=== PATIENT | female | born 1950 | race Caucasian/White ===

== ENCOUNTER → 2020-10-19 11:39 | Outpatient (CLI) | payer MEDICARE, OTHER, SELFPAY ==
[2020-10-19 13:11] LABS: COVID19 -Nasal RAPID Negative (Negative)
== END ==
PROVIDERS: Visit Provider Physician Assistant
DX: Z01.812 Encounter for preprocedural laboratory examination (principal); Z20.822 Contact with and (suspected) exposure to COVID-19
CPT/HCPCS: 87635; C9803

== ENCOUNTER 2020-10-22 10:05 | Observation (INO) | payer MEDICARE, OTHER, SELFPAY ==
[2020-10-15 09:53] VITALS: BMI 24.0
[2020-10-21] VITALS (15 sets, daily range): BP systolic 104–150; BP diastolic 60–94; PULSE 78–100; RESP 10–16; TEMP 36–36.6; O2SAT 95–100; BMI 23.7
--- NOTE | 2020-10-21 | DI.RAD.S_ITS ---
PROCEDURE: XR LUMBAR SPINE 2-3V INDICATIONS: L5-S1 TLIF TECHNIQUE: 2 intraoperative fluoroscopic views of the lumbar spine were acquired. COMPARISON: None. FINDINGS: Intraoperative fluoroscopic images shows transpedicular fusion at L5-S1 level with intervertebral spacer placement. IMPRESSION: Fluoro guidance was provided intraoperatively for posterior fusion at L5-S1 level. Dictated by: Enmanuel Valles M.D. on 10/21/2020 at 16:54 Approved by: Enmanuel Valles M.D. on 10/21/2020 at 16:55
[2020-10-21] MEDS: LACTATED RINGERS 1,000 ML 42 ML IV ×2 (11:20→13:24)
--- NOTE | 2020-10-21 12:08 | PM.PREOP ---
Pre-operative Note COVID-19 COVID-19 status: Negative Result date/Date tested (Pos, Neg/Pending): 10/19/20 Interval Note History & Physical reviewed/Exam performed by Physician: Yes Changes to H&P: No
[2020-10-21] MEDS: CLINDAMYCIN 600 MG/50 ML PIGGYBACK 50 MG IV ×2 (12:15→20:11)
--- NOTE | 2020-10-21 13:00 | SUR.OPER ---
Prone on spine table, head in foam head support, padded chest and pelvic supports, gel pad at knees, lower legs supported by pillows; nipples, genitalia and toes free of pressure, arms secured on foam padded arm boards at <90 degrees abduction. Tape over blanket at thigh secured to table.
[2020-10-21] MEDS: BUPIVACAINE 0.25% W/ EPI (PF) 10 ML VIAL 20 ML INJ (13:06)
[2020-10-21] MEDS: BUPIVACAINE LIPOSOME 266 MG/20 ML VIAL INJ (13:06)
--- NOTE | 2020-10-21 14:46 | PM.OP.1 ---
Operative Date/Time/Diagnoses Date of procedure: 10/21/20 Time of procedure: 12:46 Pre-op diagnosis: 1. L5-S1 spondylolisthesis 2. L5-S1 spinal stenosis with radiculopathy Post-op diagnosis: same Procedure & Clinicians Procedure: 1. L5-S1 Postero-lateral and posterior interbody fusion 2. L5-S1 interbody cage placement. 3. L5-S1 decompressive laminectomy with bilateral facetecomies 4. L5-S1 Posterior non-segmental instrumentation 5. Hyndman of bone marrow from iliac crest 6. Utilization of microsurgical technique and operating microscope Same procedure as scheduled: Yes Indications: Patient has been having chronic back pain and worsening lumbar radiculopathy. Patient failed multiple conservative management with worsening pain weakness and numbness in her lower extremity. Patient has been having difficulty performing activity of daily living. After discussing risks benefits of treatment options, patient elected proceed with surgery. Surgeon: Ray Davila Director Recreation Center: Cassandra Parnell'Brien Click Yes if Unassisted: No Anesthesia Type: General Operative Notes Closure Type: primary Specimen(s): none sent Prosthetic devices, grafts, tissues, transplants, or devices: Globus revolve screws, Rise cage Estimated Blood Loss (mL): 75 Blood products transfused: none Procedure in detail: Patient was seen in the preoperative area. Risks and benefits of the surgery was discussed with the patient. Informed consent was obtained from the patient and placed in the chart. Surgical site was marked. Patient was taken to the operative room. General anesthesia was administered. Prophylactic antibiotic was given to the patient less than 30 min before the incision was made. Patient was placed into a prone position on the [place] table. Patient's back was then prepped and draped in the sterile fashion. Time-out was performed at this time. Using AP and lateral C-arm imaging the interval between L5-S1 was identified and marked on patient's back. A 2 inch incision 2 in from midline was made on the left side first. The fascia was incised in line with skin incision. Globus MARS retractors was placed inside the incision and docked onto the L5 lamina. Using microsurgical technique and operating microscope, a L5 laminectomy and L5-S1 facetectomy was performed using a Kerrison rongeur. Patient was found have severe lateral recess and neural foramen stenosis which was fully decompressed after the laminectomy facetectomy. More than 75% of the facets were removed during the process of decompression rendering L5-S1 level grossly unstable and required a fusion procedure at the same time. The disc space at L5-S1 was identified. And a total diskectomy was performed at L4-5 level. The endplates were decorticated using a rasp and shaver. The total diskectomy and decortication was performed at L5-S1 level in order to to accomplish a L5-S1 fusion. The local bone from the laminectomy and facetectomy was saved for local bone grafting. After the total diskectomy and decortication was completed, Trifecta bone graft material was combined with local bone that was harvested earlier. At this time, a separate skin is incision was made over the iliac crest. A Jamshidi needle was inserted into the iliac crest through a separate skin incision. 5 cc of bone marrow aspiration was obtained through the separate skin incision using a Jamshidi needle from the iliac crest. The bone marrow aspiration was combined with local bone and the Trifecta bone grafting material. The bone grafting material was placed into the L5-S1 interbody space along with a expandable cage. The cage was expanded to its maximum height using the torque limiting screwdriver. At this time a mirror image incision was made on the right side. The fascia was incised in line with the skin incision. Globus MARS retractor was inserted and docked onto the L5-S1 posterolateral gutter. Using the power drill, posterior-lateral decortication was performed at L5-S1 level until bleeding cortical bone was identified. The remaining bone grafting material was placed into the L5-S1 posterior lateral gutter he order to accomplish posterolateral fusion at the L5-S1 level. Using the double C-arm technique, pedicle screws were placed into the L5-S1 pedicles bilaterally. This was done by placing the Jamshidi needle into the pedicles, then placing the guidewires over the Jamshidi needle, and finally placing the cannulated screws over the guidewires bilaterally. After the pedicle screws were placed, 2 titanium rods was locked into the heads of the pedicle screws using locking caps and torque limiting screwdriver. After all the hardware was placed, and confirmed with AP and lateral C-arm imaging, the wound was then irrigated with sterile normal saline and packed with Ray-Tamiko gauze for 3 min to accomplish hemostasis. After the gauze was removed the deep fascia was closed with #1 Vicryl suture. The subcutaneous layer was closed with 2-0 Vicryl. The skin was closed with skin richard. Patient tolerated the procedure well. There were no complications. EMG and SSEP was used to monitor patient's neurological status which was stable throughout entire procedure. Complications: none Post-operative Condition: stable Disposition: PACU Plan for aftercare: Admit to inpatient hospital
[2020-10-21] MEDS: fentaNYL 100 MCG/2 ML INJ IV (15:03)
[2020-10-21] MEDS: HYDROMORPHONE 2 MG INJ IV ×3 (15:12→15:25)
[2020-10-21] MEDS: OXYCODONE IR 5 MG TABLET 10 MG PO ×2 (17:36→22:04)
[2020-10-21] MEDS: SODIUM CHLORIDE 0.9% 1,000 ML 100 ML IV (17:37)
[2020-10-21] MEDS: SENNOSIDES 8.6 MG TABLET 17.2 MG PO (20:11)
[2020-10-21] MEDS: BUSPIRONE 5 MG TABLET 10 MG PO (20:11)
[2020-10-21] MEDS: DOCUSATE 100 MG CAPSULE PO (20:11)
[2020-10-21] MEDS: hydrOXYzine pamoate 25 MG CAPSULE PO (20:13)
[2020-10-22] VITALS (7 sets, daily range): BP systolic 137–158; BP diastolic 73–97; PULSE 92–108; RESP 16–18; TEMP 36.4–37.6; O2SAT 95–99
[2020-10-22] MEDS: OXYCODONE IR 5 MG TABLET 10 MG PO ×4 (02:00→21:35)
[2020-10-22] MEDS: SODIUM CHLORIDE 0.9% 1,000 ML 100 ML IV (04:22)
[2020-10-22] MEDS: CLINDAMYCIN 600 MG/50 ML PIGGYBACK 50 MG IV (04:22)
[2020-10-22] MEDS: hydrOXYzine pamoate 25 MG CAPSULE PO ×2 (04:22→21:35)
[2020-10-22] MEDS: ACETAMINOPHEN 325 MG TABLET 650 MG PO (04:35)
--- NOTE | 2020-10-22 06:40 | PC.NURSE ---
Pt stable, receiving IV abx. Pt emotionally fragile, oscillating between happy and teary within minutes. AOx4, cooperative, +CMS. Pain controlled well with medication. Dressing CDI. Educated on movement in and out of bed.
--- NOTE | 2020-10-22 09:20 | P.PN_ITS ---
Subjective Subjective Date Patient Seen: 10/22/20 Time Patient Seen: 09:20 Interval history: Patient is POD#1 s/p L5-S1 TLIF with Dr. Davila. Pain has been moderate to severe overnight, pain is mostly incisional, some relief with Oxycodone. She has been OOB to bedside commode. Voiding appropriately. Tolerated a diet this AM. Complained of itch overnight which has improved with Vistaril. No chest pain or shortness of breath. Does not improvement in LLE symptoms. Exam Vital Signs (past 8 hours): - 10/22/20 04:35 10/22/20 04:52 10/22/20 07:41 Temperature 99.6 F 99.4 F 97.5 F L Pulse Rate 100 H 92 H Respiratory Rate 16 16 Blood Pressure 156/82 H 154/94 H Pulse Oximetry 99 97 Oxygen Delivery Method Room Air Oxygen Flow Rate 0 Narrative Exam Narrative: 70 year old female resting in bed. Alert and oriented. Tearful and anxious, but pleasant. Dressing in place is clean and dry. Peeling at edges. Patient able to perform straight leg raise. Calves are soft, nontender. Palpable pedal pulse. [facility] Medical History Anxiety Arthritis Brain aneurysm (1990) Depression HTN (hypertension) Internal bleeding (~2011) Pre-diabetes (10/2020) Sciatica Tremor Surgical History Hx of BSO (bilateral salpingo-oophorectomy) (01/2020) Hx of thyroidectomy Social History household members: none Smoking Status: Former smoker alcohol intake: current Assessment & Plan Assessment & Plan narrative: -Patient is POD #1 s/p L5-S1 TLIF. -Poor pain control overnight, will add Dilaudid 2mg for severe pain. Continue Vistaril 25mg for spasm. -Mobilize today with PT. OT consult added. Patient has significant anxiety at baseline which extends to her surgical recovery. Expect addition of OT to assess for her ability to perform ADLs postop will be especially helpful. She has not mobilized well as of yet. She has daughter in law at the bedside today. -Patient with poor pain control and poor mobilization so far as well as significant anxiety. Likely discharge to home in 1-2 days. Quality VTE Deep Vein Thrombosis/Pulmonary Embolism Present on Admission: No
[2020-10-22] MEDS: BUSPIRONE 5 MG TABLET 10 MG PO ×2 (09:35→21:35)
[2020-10-22] MEDS: VENLAFAXINE ER 75 MG CAP 150 MG PO (09:35)
[2020-10-22] MEDS: CHLORTHALIDONE 25 MG TABLET PO (09:35)
[2020-10-22] MEDS: HYDROMORPHONE 2 MG TABLET PO ×2 (09:35→12:33)
[2020-10-22] MEDS: DOCUSATE 100 MG CAPSULE PO ×2 (09:35→21:35)
--- NOTE | 2020-10-22 10:00 | PT.IIE ---
Current Diagnoses Spondylolisthesis, lumbosacral region (10/21/20) Spinal stenosis, lumbar region without neurogenic claudication (10/21/20) Surgery Performed Operation Date: 10/21/20 12:15 Actual Procedures p L5-S1 TLIF(Not Applicable) - Ray Davila MD Surgical History (Last Reviewed 10/22/20 @ 09:27 by Nely Boston PA-C) Hx of BSO (bilateral salpingo-oophorectomy) (01/2020) Hx of thyroidectomy Medical History (Last Reviewed 10/22/20 @ 09:27 by Nely Boston PA-C) Anxiety Arthritis Brain aneurysm (1990) Depression HTN (hypertension) Internal bleeding (~2011) Pre-diabetes (10/2020) Sciatica Tremor Physical Therapy Inpatient Evaluation/Re-Eval M1 PT/OT-IP Prior Functional Status Start: 10/22/20 11:21 Freq: NEEDED Status: Active Protocol: Document 10/22/20 11:21 [facility] (Rec: 10/22/20 11:51 [facility] [id number]) Medical Review Prior Functional Status Medical History Reviewed Yes Communication Independent to communicate her needs and wants. Mobility and Gait Prior pt states did not use any devices to ambulate. Activities of Daily Living and IADL's Pt states needing increased time and having more difficulty to do all Adl and IADl needs just prior to surgery. Prior Functional Level (Other details) Pt's daughter in law and son to stay with the pt. Social History Household Members children,none Living Arrangements House Number of Floors (Floors) One Floor Number of Stairs To Enter/Railing? 4 steps with wide steps. Home Environment Standard Height Toilet,Walk in Shower Home Equipment Four Wheel Walker,Straight Cane,Raised Toilet Seat w/ Armrests,Shower Seat without Backrest,Hand Held Shower, [employer] Additional Social History Comment Pt's son and daughter in [place] to be staying with the pt to help care for her. M2 PT-IP Current Condition Start: 10/22/20 08:57 Freq: NEEDED Status: Active Protocol: Document 10/22/20 09:53 AW (Rec: 10/22/20 11:46 AW [id number]) Physical Therapy Current Condition Current Condition Evaluation Date 10/22/20 Treatment Diagnosis L5-S1 TLIF; impaired mobility and gait Onset Date 10/21/20 Precautions Lumbar Precautions Log Roll,No Twisting,Limit Bending,Lifting Restriction of 10 lbs,Gait Belt above Incisional Area M3 PT-IP Subjective Start: 10/22/20 08:57 Freq: NEEDED Status: Active Protocol: Document 10/22/20 09:53 AW (Rec: 10/22/20 11:46 AW [id number]) Subjective Physical Therapy Visit Type Type Initial Evaluation Visit Start Time 09:20 Visit Stop Time 09:53 Total Visit Minutes 33 Notes Pt's daughter in law, Ana, present throughout evaluation. Physical Therapy Visit Comments Patient Comments Pt is willing to participate with PT Patient Goals Return to activities such as dancing Therapy Pain Assessment Pain When Pain Assessed During Mobility Pain Present Pain Present Pain Reported Location BACK Intensity 8 Scale Used Numeric (0 - 10) Pain Behaviors Facial Grimacing,Restlessness, Wincing Pain Management Techniques Re-positioning,Timing of Activity with Medications M4 PT-IP Mobility and Gait Start: 10/22/20 08:57 Freq: NEEDED Status: Active Protocol: Document 10/22/20 09:53 AW (Rec: 10/22/20 11:46 AW [id number]) PT-Bed Mobility Assessment Rolling Type of Rolling Log Rolling,Roll to Right Level of Assist Moderate Assistance,1 Person Assistance Supine to Sit Supine to Sit Moderate Assistance,1 Person Assistance,Bedrails Sit to Supine Sit to Supine Moderate Assistance,1 Person Assistance,Bedrails Scooting Scooting to Edge of Bed Minimal Assistance Scooting Up and Down in Bed Minimal Assistance PT-Transfer Assessment Sit to and From Stand Sit to and from Stand Minimal Assistance,1 Person Assistance,Use of Upper Extremities Equipment Transfer Assistive Device Gait Belt,Front Wheeled Walker Orthotic/Prosthetic Devices or Brace: No Transfers Transfer Destination Bed,Bedside Commode Transfer Technique Stand Step Pivot Transfer Ability Level of Assist Minimal Assistance,1 Person Assistance Comments Mobility Comments Pt was lying in the bed as PT arrived. After education on lumbar precautions, pt required mod assist to log roll and SL to sit on her right EOB. Pt was shaky and required frequent cues to control her respiratory rate and depth as pt tended to hyperventilate. With breathing controlled, pt stood from the bed min 1PA and transferred to the C min 1PA and cues to control her descent with BUE on the commode arms. Pt voided and completed pericare SBA. She then stood min 1PA and ambulated to the sink with FWW CGA where she washed her face and hands with CGA for balance. She ambulated back to the right EOB and completed sit to supine via reverse log roll mod 1PA and cues for sequencing. Pt was positioned on the bed with call light and all needs in reach. Bed alarm was armed. Gait Assessment Gait Gait Assistance Required: Contact Guard Assist Distance (Feet) 8 Able to Maintain Weight Bearing Status Yes During Gait Assistive Devices Assistive Device Gait Belt,Front Wheeled Walker Orthotic/Prosthetic Devices or Brace: No Gait Deviations General Gait Pattern Antalgic,Decreased Stride Length,Decreased Feet Clearance,Flexed Trunk Factors Limiting Gait Function Factors Limiting Gait Function Decreased Activity Tolerance, Decreased Sensation,Decreased Strength,Limited Range of Motion,Pain,Poor Balance Comments Gait Comments Pt required cues for knee extension in mid-stance and CGA due to unsteadiness during gait. Stair Climbing Assessment Comments Stair Climbing Comments Not assessed. PT-Balance Assessment Sitting Balance and Reactions Static Sitting Balance Ability Good Dynamic Sitting Balance Ability Good Standing Balance and Reactions Static Standing Balance Ability Fair Dynamic Standing Balance Ability Fair Device Used FWW M5 PT-IP Objective Assessments Start: 10/22/20 08:57 Freq: NEEDED Status: Active Protocol: Document 10/22/20 09:53 AW (Rec: 10/22/20 12:03 AW [id number]) Orientation Orientation/Cognition Level of Alertness Alert Orientation Name,Day of Week,Place, Situation Language Function Ability No Deficits Noted Safety Awareness Understands Safety Issues Memory Description No Deficits Noted Gross Range of Motion Lower Extremity ROM Assessment Bilaterally Impaired Strength Lower Extremity Strength Assessment Bilaterally Impaired Hip 3+/5 Knee 4-/5 Ankle 4/5 Comments Strength Comments Strength was symmetrical. Hip exam limited by pain. Sensation Assessment Sensation Gross Sensation Right LE Impaired,Left LE Impaired Light Touch Impaired Proprioception (Position) Impaired Comments Sensation Comments Pt reports pain in bilateral posterior thighs. Dull light touch sensation in bilateral feet. M6 PT-IP Treatment Start: 10/22/20 08:57 Freq: NEEDED Status: Active Protocol: Document 10/22/20 09:53 AW (Rec: 10/22/20 12:03 AW [id number]) Physical Therapy Treatment Education Education Provided Precautions,Weight Bearing Status,Post-Op Packet,Safety Other Treatments Other Treatment Performed Provided education on role of PT, plan of care, lumbar precautions, and rationale for use of FWW at this time. M7 PT-IP Assessment and Plan Start: 10/22/20 08:57 Freq: NEEDED Status: Active Protocol: Document 10/22/20 09:53 AW (Rec: 10/22/20 12:03 AW [id number]) PT Summary Assessment and Plan Potential Rehabilitation Potential Good Status of Condition at Evaluation Evolving Summary Impairments Pain,ROM,Strength,Balance, Sensation,Bed Mobility, Transfers,Gait,Activity Tolerance Assessment Summary Sherly is a 70 yo woman seen for PT evaluation on POD1 following L5-S1 TLIF. She has been using a 4WW or SPC for all household mobility. She uses a cane when she leaves the home for appointments. On evaluation, pt is requiring mod assist for bed mobility and CGA to min assist for transfers and ambulation with FWW. She will benefit from continued acute PT to progress her safe mobility in anticipation of safe discharge home with son and daughter in law providing assist. Will continue to assess, but pt may also benefit from home health therapy. Goals Bed Mobility Goal Standby Assistance Transfer Goal Standby Assistance,Front Wheeled Walker Gait Goal Standby Assistance,Front Wheel Walker Gait Distance 100 Other Goals - up/down 4 steps with unilateral rail CGA Days to Meet Goals 5 Frequency of Treatment Frequency Of Treatment Twice a Day Treatment Plan Physical Therapy Treatment Plan Bed Mobility Training,Transfer Training,Gait Training, Therapeutic Exercise,Balance Retraining,Post Op Education, Discharge Planning,Hot or Cold Pack,Neuromuscular Re-ed Other Recommendations and Next Treatment review precautions, mobility Focus as tolerated Recommendations To Nursing Amount of Assist Needed 1 Person Assist Discharge Recommendations PT Discharge Recommendations Home with Assistance,Home Health,Outpatient PT Other Discharge Recommendations home with assist and HH vs OP PT Equipment Needed for Home Before FWW if unsafe with 4WW Discharge Transportation Needs at Discharge Private Vehicle
--- NOTE | 2020-10-22 12:41 | OT.IP.EVAL ---
Current Diagnoses Spondylolisthesis, lumbosacral region (10/21/20) Spinal stenosis, lumbar region without neurogenic claudication (10/21/20) Surgery Performed Operation Date: 10/21/20 12:15 Actual Procedures p L5-S1 TLIF(Not Applicable) - Ray Davila MD Past Medical History (Last Reviewed 10/22/20 @ 09:27 by Nely Boston PA-C) Anxiety Arthritis Brain aneurysm (1990) Depression HTN (hypertension) Internal bleeding (~2011) Pre-diabetes (10/2020) Sciatica Tremor Surgical History (Last Reviewed 10/22/20 @ 09:27 by Nely Boston PA-C) Hx of BSO (bilateral salpingo-oophorectomy) (01/2020) Hx of thyroidectomy Occupational Therapy Inpatient Evaluation/Re-Eval M1 PT/OT-IP Prior Functional Status Start: 10/22/20 11:21 Freq: NEEDED Status: Active Protocol: Document 10/22/20 11:21 [facility] (Rec: 10/22/20 11:51 [facility] [id number]) Medical Review Prior Functional Status Medical History Reviewed Yes Communication Independent to communicate her needs and wants. Mobility and Gait Prior pt states did not use any devices to ambulate. Activities of Daily Living and IADL's Pt states needing increased time and having more difficulty to do all Adl and IADl needs just prior to surgery. Prior Functional Level (Other details) Pt's daughter in law and son to stay with the pt. Social History Household Members children,none Living Arrangements House Number of Floors (Floors) One Floor Number of Stairs To Enter/Railing? 4 steps with wide steps. Home Environment Standard Height Toilet,Walk in Shower Home Equipment Four Wheel Walker,Straight Cane,Raised Toilet Seat w/ Armrests,Shower Seat without Backrest,Hand Held Shower, Coconut Candy Maker Additional Social History Comment Pt's son and daughter in law to be staying with the pt to help care for her. M2 OT-IP Current Condition Start: 10/22/20 11:21 Freq: Status: Active Protocol: Document 10/22/20 11:21 [facility] (Rec: 10/22/20 11:51 [facility] [id number]) Occupational Therapy Current Condition Current Condition Evaluation Date 10/22/20 Treatment Diagnosis s/p L5-S1 TLIF Diagnosis Onset Date 10/21/20 Post Operative Precautions Lumbar Precautions Log Roll,No Twisting,Limit Bending,Lifting Restriction of 10 lbs,Gait Belt above Incisional Area M3 OT- IP Subjective and Pain Start: 10/22/20 11:21 Freq: Status: Active Protocol: Document 10/22/20 11:21 [facility] (Rec: 10/22/20 11:51 [facility] [id number]) OT- Subjective Occupational Therapy Visit Type Type Initial Evaluation Visit Start Time 10:20 Visit Stop Time 10:59 Total Visit Minutes 39 Occupational Therapy Visit Comments Patient Comments Pt agreed to get up for OT eval , pt's daughter in law present and able to initiate some caregiver training. Patient/Caregiver Goals TO go home. OT Pain Assessment Pain When Pain Assessed At Rest Pain Present Pain Present Pain Reported Location BACK Intensity 6 Scale Used Numeric (0 - 10) M4 OT- IP ADL's Start: 10/22/20 11:21 Freq: Status: Active Protocol: Document 10/22/20 11:21 [facility] (Rec: 10/22/20 11:51 [facility] [id number]) OT [id number] Comments OT Self-Feeding Comments NOt at meal time. OT ADL-Grooming Comments OT Grooming Comments Not performed. OT ADL-Oral Care Comments Oral Care Comments Educated when brushing her teeth to either hinge at hips or just spit into a cup to best follow her back precautions. OT ADL-Dressing General Eval Lower Body Dressing Ability Maximum Assistance Areas Needing Assistance Socks Comments OT Dressing Comments Beginning to educate pt on LB dressing equipment and best to dress her right leg first and take out last as pt states the right leg is worse. To practice more tomorrow as pt too tired today. OT ADL-Toileting General Evaluation Toileting Ability Minimal Assistance Areas Needing Assistance Manage Clothing Comments OT Toileting Comments It was determined best way to follow her back precautions is to stand to wipe. Pt's daughter in law had to assist to pull up the brief so pt able to reach and then needing AUBREY for balance so pt able to pull up over her hips. OT ADL-Bathing Comments OT Bathing Comments NOt at this time. M5 OT- IP IADL's Start: 10/22/20 11:21 Freq: Status: Active Protocol: Document 10/22/20 11:21 [facility] (Rec: 10/22/20 11:51 [facility] [id number]) OT-Instrumental Activities of Daily Living Home Safety Awareness Home Safety Comments Pt's son and daughter in law to assist pt for all needs at home. M6 OT- IP Functional Cognition Start: 10/22/20 11:21 Freq: Status: Active Protocol: Document 10/22/20 11:21 [facility] (Rec: 10/22/20 11:51 [facility] [id number]) Cognitive Factors Limiting Selfcare Function Cognitive Ability Level of Alertness Alert Patient Orientation Name,Place,Situation Attention Span Ability Capable of Focused Attention, Capable of Sustained Attention Ability to Follow Commands Able to Follow One Step Commands with Increased Time, Able to Follow One Step Commands with Repetition Memory Description Short Term Impaired Safety Awareness Decreased Ability to Apply Precautions,Underestimates Need for Assistance Problem Solving Ability Unable to Identify Errors, Needs Assist to Identify Solutions Cognitive Comments Cognitive Assessment Comments Pt needing step by step instructions for back precautions for bed mobility, transfer, and toileting needs. Pt needs lot of reassurance and encouragement, but willing to participate. M7 OT- IP Mobility and Balance Start: 10/22/20 11:21 Freq: Status: Active Protocol: Document 10/22/20 11:21 [facility] (Rec: 10/22/20 11:51 [facility] [id number]) OT- Bed Mobility Assessment Rolling Type of Rolling Roll to Right Supine to Sit Supine to Sit Assist Minimal Assistance Sit to Supine Sit to Supine Assist Moderate Assistance OT-Transfer Assessment Sit to and From Stand Sit to and from Stand Minimal Assistance Transfers Transfer Ability Minimal Assistance Technique Transfer Destination Bed,Toilet Transfer Technique Stand Step Pivot Devices Transfer Assistive Devices Gait Belt,Front Wheeled Walker Comments Mobility Comments Pt assist to help get trunk upright from side-lying and assist to help get trunk and legs up from sit to supine. Pt states has a very high bed at home. OT- Gait Assessment Comments Gait Ability Comments AUBREY with FWW. OT- Balance Assessment Sitting Balance and Reactions Static Sitting Balance Ability Good Dynamic Sitting Balance Ability Fair Standing Balance and Reactions Static Standing Balance Ability Fair M8 OT- IP Objective Assessments Start: 10/22/20 11:21 Freq: Status: Active Protocol: Document 10/22/20 11:21 [facility] (Rec: 10/22/20 11:51 [facility] [id number]) OT Gross Range of Motion Upper Extremity Range of Motion Assessment Within Functional Limits OT-Muscle Tone Assessment Muscle Tone WNL Yes M9 OT- IP Assessment and Plan Start: 10/22/20 11:21 Freq: Status: Active Protocol: Document 10/22/20 11:21 [facility] (Rec: 10/22/20 11:51 [facility] [id number]) OT Summary Assessment and Plan Potential Rehabilitation Potential Good Analytic Complexity at Evaluation Low Summary OT Impairments Pain,Functional Cognition, Functional Mobility,Grooming, Dressing,Toileting,Bathing, Toilet Transfers,Shower Transfers,Activity Tolerance Progress Towards Goals Progressing Toward Goals Assessment Summary Pt low complexity and main barriers are steps, pain, and needing lot or encouragement and instructions to be able to follow her back precautions. Pt has a supportive daughter in law who has initiated caregiver training for how to minnie/doff the gait belt and how to assist pt with gait belt when up walking with the FWW. To continue caregiver training tomorrow at 10AM. Pt to go home with family when medically stable. Goals Grooming Goal Independent Dressing Goal Independent Toileting Goal Independent Bathing Goal Independent Toilet Transfer Goal Independent Shower Transfer Goal Independent Patient/Caregiver Education Goal Demonstrate Post-Op Precautions,Caregiver Independent Assisting Patient Days to Meet Goals 7 Frequency of Treatment Frequency Of Treatment Once a Day Treatment Plan OT Treatment Plan ADL Training,Functional Cognition Training,Functional Mobility,Patient/Family Education,Discharge Planning Other Treatment Recommendations and Next caregiver training Treatment Focus Discharge Recommendations OT Discharge Recommendations Home with Assistance Home Equipment Needs FWW, BSC? Transportation Needs at Discharge Private Vehicle
--- NOTE | 2020-10-22 13:26 | PT-IP ANOTE ---
Contacted pt for PM treatment. Pt was tearful and reporting 8/10 pain in spite of PO dilaudid within the past one hour. She was too fatigued from morning therapies to participate. I really think I overdid it. Will follow up Monday AM to continue treatment.
[2020-10-22] MEDS: ALPRAZolam 0.5 MG TABLET PO (13:47)
--- NOTE | 2020-10-22 14:00 | CM.DANOTE ---
Discharge Planning/Care Management DCP: assessment: case received, EMR reviewed. Discussed today with rounding ortho LUCIEN Mckay. Nely reports pt is experiencing high levels of pain and this is limiting her ability to work with therapy. She notes she carries dx of anxiety which also may be impacting her difficulties post surgery. Went to room now to meet with pt after review of PT/OT notes. Pt was found in the dark, being attended to by RN. Tearful and stating her was in severe pain. Left DCPlanner info on white-board with intent to return tomorrow when pt is calmer and hopefully more comfortable. Pt is a 70 year old female, , who lives alone in [facility]. She plans for a d/c to home when stable for same and with her daughter in law Ana as primary caregiver (she has been present for caregiver training today) with support also from pt's son Shaw. Sugery: TLIF lumbar/sacral area. Surgeon: Dr. Davila Payer: Medicare and [employer] D Admission status: SDC 10/21 and to OBS: 10/22: confirmed by UR JOE Elizabeth. P: at this point: home as above when stable for same, likely in next day or 2 per LUCIEN Mckay. CM Discharge Assessment Start: 10/22/20 13:58 Freq: Status: Active Protocol: Document 10/22/20 13:58 ITV (Rec: 10/22/20 14:00 ITV [id number]) Discharge Planning Assessment Advance Directives? No History Provided By Medical Record Prior Living Arrangements House lives alone Independent with ADL's Yes: limited by pain Is patient alert and oriented? Yes Whiteboard Updated in Patient Room with Yes name and ext. # of Stock Hanger Pre-Anesthesia Assessment Start: 10/15/20 09:52 Freq: Status: Active Protocol: Document 10/15/20 09:53 [facility] (Rec: 10/15/20 10:46 [facility] [id number]) Pre-Anesthesia Assessment Preferred Name Sherly Patient Information Reviewed Via Phone Assessment Assessment Completed With Patient,Caregiver Comment Labs/EKG done w/PCP, not avail , COVID screen @ 10/19/20 Primary Care Provider Katarzyna Klely Seen Specialist in Last 12 Months Yes Specialist Seen Oncologist,Orthopedist Primary Language Barbadian Bar Roller Required No Height 160.02 cm Weight 61.689 kg Body Mass Index (BMI) 24.0 Hearing Ability Normal Visual Assist Glasses Dentition Type Partial- Upper Barriers to Learning None Hx Anesthesia Reactions No Hx Family Anesthesia Reaction No Hx Malignant Hyperthermia No Hx Blood Transfusions Yes: Internal bleeding r/t fibroid '12 Hx Blood Transfusion Reaction No Anesthesia Review Requested No alcohol intake current alcohol intake frequency a few times a week Smoking Status Former smoker Tobacco type cigarettes how long ago did patient quit smoking Quit 03/2012 Substance Use Type marijuana Comment Pt advised not to smoke 24 hours prior to surgery Pain Present Pain Reported Musculoskeletal Symptoms Abnormal Gait,Back Pain, Difficulty Walking,Joint Pain, Myalgias,Radiating Pain into Limb,Tremors History of Falling (Recent or History of No ) Patient is completely paralyzed or No completely immobile Prosthesis or Orthotic Device Cane,Front Wheel Walker Mental Status Oriented to own ability Is patient on oxygen? No Does patient have KAT/SOB No Hx Sleep Apnea No Currently Taking a Beta Kimberly No Hx Chest Pain No Hx SOB No Hx Syncope or Dizziness No Anti-Coagulant Therapy No Has a Plant Maintenance Engineer No Cardiac Testing No Hx Pacemaker/ICD No Pacemaker Rep Required? No Cardiac Clearance Received Not Applicable Diet Type At Home Regular dysphagia No Gastrointestinal Symptoms Constipation Bladder Pattern Incontinent,Nocturia Urinary Catheter Present No Hx Urinary Self Catheterization No Comment Nocturnal incontinence within last 6 months Diabetes No: Pre-diabetes Patient No Lactating No Hx Drug Resistant Organism No Presence of External or Internal Medical No Devices Have you had any close contact with No someone diagnosed with COVID-19? Marital Status / Lives With none Prior Living Arrangements House Number of Floors (Floors) One Floor Support System Caregiver Does the Patient Have Assistance After Yes: Caregiver will stay with Surgery pt at [place] to assist Patient Discharge Plan Description Return Home Comment Pt advised 1-2 day length of stay per surgeon Feels Safe in Current Environment Yes Been Physically Hurt or Threatened By a No Person in Current Environment Do you have thoughts of harming yourself None or others? Are you currently considering suicide? No Do you have a plan to hurt yourself or No Plan others? Do You Have Any Spiritual Beliefs That No May Affect Your HC Choices? Do You Have Any Cultural Practices That No May Affect Your HC Choices? Comment Jose Antonio Who Can We Speak to About Patient's Care Family, friends Identifying Code for Release of Patient Declines to issue Information Health Care Proxy/Next of Kin Ana (caregiver) Shaw (son) Pt wants Ana to be first Health Care Proxy Phone Number Ana: [phone] Shaw: Emergency Contact Name Ana (caregiver) Shaw (son) Emergency Contact Phone Number Ana: [phone] Shaw: Advance Directives? No PAC Instructions Durable medical equipment, Medications to take/avoid, Nasal antibiotic,No ETOH/ petroleum product on skin DOS, NPO,Sensory aids,Sturdy shoes/ comfortable clothes,Do not bring valuables and remove jewelry
[2020-10-22] MEDS: SENNOSIDES 8.6 MG TABLET 17.2 MG PO (21:34)
[2020-10-23] MEDS: OXYCODONE IR 5 MG TABLET 10 MG PO ×2 (00:34→04:03)
[2020-10-23] MEDS: hydrOXYzine pamoate 25 MG CAPSULE PO ×4 (04:03→22:36)
[2020-10-23 04:20] VITALS: BP 134/70; PULSE 87; RESP 16; TEMP 36.8; O2SAT 95
--- NOTE | 2020-10-23 07:51 | P.PN_ITS ---
Subjective Subjective Date Patient Seen: 10/23/20 Time Patient Seen: 07:51 Interval history: POD #2 s/p L5-S1 TLIF with Dr. Davila. Patient has had significant anxiety while in the hospital. She states yesterday was the worst day as when she worked with OT she had horrible back pain and pain radiating into the legs. Her pain is either controlled with Oxycodone or Dilaudid depending on severity. Exam Vital Signs (past 8 hours): - 10/23/20 04:20 Temperature 98.2 F Pulse Rate 87 Respiratory Rate 16 Blood Pressure 134/70 Pulse Oximetry 95 Oxygen Delivery Method Room Air Oxygen Flow Rate 0 Narrative Exam Narrative: Patient lying in bed in NAD. She is alert and oriented X3. Calves are soft, compressible, and nontender bilaterally. SILT throughout BLEs. DP are 2+. Dressing on back is not intact. It is clean and dry. [facility] Medical History Anxiety Arthritis Brain aneurysm (1990) Depression HTN (hypertension) Internal bleeding (~2011) Pre-diabetes (10/2020) Sciatica Tremor Surgical History Hx of BSO (bilateral salpingo-oophorectomy) (01/2020) Hx of thyroidectomy Social History household members: children and none Smoking Status: Former smoker alcohol intake: current Assessment & Plan Post-op Postoperative Procedures: Procedures Operation Date: 10/21/20 12:15 Actual Procedures Side Surgeon p L5-S1 TLIF Not Applicable Ray Davila MD Patient will continue to mobilize with PT and OT. No excessive bending, lifting, or twisting. Encouraged her she needs to work with therapy to prevent pneumonia and DVTs. Will do one time dose of decadron to bring down radicular symptoms. Continue current pain control. Anticipate discharge in next 1-2 days once mobilizing safely. Quality VTE Deep Vein Thrombosis/Pulmonary Embolism Present on Admission: No
[2020-10-23] MEDS: VENLAFAXINE ER 75 MG CAP 150 MG PO (08:09)
[2020-10-23] MEDS: ACETAMINOPHEN 325 MG TABLET 650 MG PO ×3 (08:09→20:59)
[2020-10-23] MEDS: DOCUSATE 100 MG CAPSULE PO ×2 (08:09→20:58)
[2020-10-23] MEDS: ALPRAZolam 0.5 MG TABLET PO (08:09)
[2020-10-23] MEDS: HYDROMORPHONE 2 MG TABLET PO ×4 (08:10→20:59)
[2020-10-23] MEDS: DEXAMETHASONE 10 MG/ML VIAL IV (08:16)
--- NOTE | 2020-10-23 08:35 | CM.DPC ---
DCP: continued: EMR reviewed and d/c order noted from ortho LUCIEN Steiner. Her progress note for today states pt still having significant pain, meds are adjusted, PT/OT will continue and expect pt will d/c in next one to two days. Called [facility] to obtain clarity. She stated that, as per their process, the d/c order is in place in case pt is ready for d/c today. She says the nurse will call her at the end of the day to let her know if pt is ready to go or if the d/c order should be cancelled. Will update team in Rounds. UR JOE Elizabeth is notified.
[2020-10-23] MEDS: CHLORTHALIDONE 25 MG TABLET PO (09:48)
[2020-10-23] MEDS: BUSPIRONE 5 MG TABLET 10 MG PO ×2 (09:48→20:59)
[2020-10-23] MEDS: SODIUM CHLORIDE 0.9% FLUSH 10 ML IV ×2 (09:49→21:00)
--- NOTE | 2020-10-23 11:00 | PT-IP ANOTE ---
Attempted to see patient at 11:00 AM, pt refused but agreed to caregiver training at 12:30 with DIL.
[2020-10-23 13:02] VITALS: BP 128/93; PULSE 113; RESP 18; TEMP 36.8; O2SAT 93
--- NOTE | 2020-10-23 13:22 | OT.IP.TRT ---
Current Diagnoses Spondylolisthesis, lumbosacral region (10/22/20) Spinal stenosis, lumbar region without neurogenic claudication (10/22/20) Surgery Performed Operation Date: 10/21/20 12:15 Actual Procedures p L5-S1 TLIF(Not Applicable) - Ray Davila MD Occupational Therapy Treatment Note M2 OT-IP Current Condition Start: 10/22/20 11:21 Freq: Status: Active Protocol: Document 10/22/20 11:21 [facility] (Rec: 10/22/20 11:51 [facility] [id number]) Occupational Therapy Current Condition Current Condition Evaluation Date 10/22/20 Treatment Diagnosis s/p L5-S1 TLIF Diagnosis Onset Date 10/21/20 Post Operative Precautions Lumbar Precautions Log Roll,No Twisting,Limit Bending,Lifting Restriction of 10 lbs,Gait Belt above Incisional Area M3 OT- IP Subjective and Pain Start: 10/22/20 11:21 Freq: Status: Active Protocol: Document 10/23/20 13:30 [facility] (Rec: 10/23/20 13:44 [facility] [id number]) OT- Subjective Occupational Therapy Visit Type Type Progress Note Visit Start Time 12:58 Visit Stop Time 13:22 Total Visit Minutes 24 Notes Partial co-treat with P.T. OT Pain Assessment Pain When Pain Assessed At Rest Pain Present Pain Present Pain Reported Location BACK Scale Used did not rate M4 OT- IP ADL's Start: 10/22/20 11:21 Freq: Status: Active Protocol: Document 10/23/20 13:30 [facility] (Rec: 10/23/20 13:44 [facility] [id number]) OT [id number] Comments OT Self-Feeding Comments Not meal time OT ADL-Grooming Comments OT Grooming Comments Not performed in todays session OT ADL-Oral Care Comments Oral Care Comments Not performed in todays session. OT ADL-Dressing Comments OT Dressing Comments Pt and family declined LB dressing training at this time stating that the family would assist her as needed. OT ADL-Toileting General Evaluation Toileting Ability Standby Assistance Devices Toileting Assistive Devices Grab Bars Comments OT Toileting Comments for urination seated on toielt OT ADL-Bathing Comments OT Bathing Comments Not performed M5 OT- IP IADL's Start: 10/22/20 11:21 Freq: Status: Active Protocol: Document 10/22/20 11:21 [facility] (Rec: 10/22/20 11:51 [facility] [id number]) OT-Instrumental Activities of Daily Living Home Safety Awareness Home Safety Comments Pt's son and daughter in law to assist pt for all needs at home. M6 OT- IP Functional Cognition Start: 10/22/20 11:21 Freq: Status: Active Protocol: Document 10/22/20 11:21 [facility] (Rec: 10/22/20 11:51 [facility] [id number]) Cognitive Factors Limiting Selfcare Function Cognitive Ability Level of Alertness Alert Patient Orientation Name,Place,Situation Attention Span Ability Capable of Focused Attention, Capable of Sustained Attention Ability to Follow Commands Able to Follow One Step Commands with Increased Time, Able to Follow One Step Commands with Repetition Memory Description Short Term Impaired Safety Awareness Decreased Ability to Apply Precautions,Underestimates Need for Assistance Problem Solving Ability Unable to Identify Errors, Needs Assist to Identify Solutions Cognitive Comments Cognitive Assessment Comments Pt needing step by step insructions for back precautions for bed mobility, transfer, and toileting needs. Pt needs lot of reassurance and encouragement, but willing to participate. M7 OT- IP Mobility and Balance Start: 10/22/20 11:21 Freq: Status: Active Protocol: Document 10/23/20 13:30 [facility] (Rec: 10/23/20 13:44 [facility] [id number]) OT- Bed Mobility Assessment Rolling Type of Rolling Log Rolling,Roll to Right Level of Assistance Minimal Assistance Supine to Sit Supine to Sit Assist Minimal Assistance Scooting Scooting to Edge of Bed Standby Assistance OT-Transfer Assessment Sit to and From Stand Sit to and from Stand Standby Assistance,Contact Guard Assistance Transfers Transfer Ability Standby Assistance,Contact Guard Assistance Technique Transfer Destination Bed,Toilet Transfer Technique Stand Step Pivot Devices Transfer Assistive Devices Gait Belt,Front Wheeled Walker Comments Mobility Comments Pt ambulated around the room out to the w/c for stair training with P.T. OT- Gait Assessment Gait Gait Assistance Required: Standby Assistance,Contact Guard Assist Assistive Devices Assistive Device Gait Belt,Front Wheeled Walker OT- Balance Assessment Sitting Balance and Reactions Static Sitting Balance Ability Good Dynamic Sitting Balance Ability Good M8 OT- IP Objective Assessments Start: 10/22/20 11:21 Freq: Status: Active Protocol: Document 10/22/20 11:21 [facility] (Rec: 10/22/20 11:51 [facility] [id number]) OT Gross Range of Motion Upper Extremity Range of Motion Assessment Within Functional Limits OT-Muscle Tone Assessment Muscle Tone WNL Yes M9 OT- IP Assessment and Plan Start: 10/22/20 11:21 Freq: Status: Active Protocol: Document 10/23/20 13:30 [facility] (Rec: 10/23/20 13:44 [facility] [id number]) OT Summary Assessment and Plan Potential Rehabilitation Potential Good Analytic Complexity at Evaluation Low Summary OT Impairments Pain,Functional Cognition, Functional Mobility,Grooming, Dressing,Toileting,Bathing, Toilet Transfers,Shower Transfers,Activity Tolerance Progress Towards Goals Progressing Toward Goals Assessment Summary Pt presents today for caregiver training with daughter in law. Pt and daughter in law educated on home safety and basic ADLs. Pt is requesting that she stay another day and agreeable to shower training tomorrow. Pt will continue to benefit from OT services. Pt's daughter in law states no need for LB dressing training as they will help her with all of the lower body dressing needs. Plan for shower training tomorrow. Goals Grooming Goal Independent Dressing Goal Independent Toileting Goal Independent Bathing Goal Independent Toilet Transfer Goal Independent Shower Transfer Goal Independent Patient/Caregiver Education Goal Demonstrate Post-Op Precautions,Caregiver Independent Assisting Patient Days to Meet Goals 7 Frequency of Treatment Frequency Of Treatment Once a Day Treatment Plan OT Treatment Plan ADL Training,Functional Cognition Training,Functional Mobility,Patient/Family Education,Discharge Planning Other Treatment Recommendations and Next caregiver training shower Treatment Focus Discharge Recommendations OT Discharge Recommendations Home with Assistance Home Equipment Needs FWW, toilet heightner with handrails. Transportation Needs at Discharge Private Vehicle
--- NOTE | 2020-10-23 13:35 | PT.IPTN ---
Current Diagnoses Spondylolisthesis, lumbosacral region (10/22/20) Spinal stenosis, lumbar region without neurogenic claudication (10/22/20) Surgery Performed Operation Date: 10/21/20 12:15 Actual Procedures p L5-S1 TLIF(Not Applicable) - Ray Davila MD Physical Therapy Treatment Note M2 PT-IP Current Condition Start: 10/22/20 08:57 Freq: NEEDED Status: Active Protocol: Document 10/22/20 09:53 AW (Rec: 10/22/20 11:46 AW [id number]) Physical Therapy Current Condition Current Condition Evaluation Date 10/22/20 Treatment Diagnosis L5-S1 TLIF; impaired mobility and gait Onset Date 10/21/20 Precautions Lumbar Precautions Log Roll,No Twisting,Limit Bending,Lifting Restriction of 10 lbs,Gait Belt above Incisional Area M3 PT-IP Subjective Start: 10/22/20 08:57 Freq: NEEDED Status: Active Protocol: Document 10/23/20 13:00 KS (Rec: 10/23/20 14:47 KS [id number]) Subjective Physical Therapy Visit Type Type Treatment Note Visit Start Time 13:00 Visit Stop Time 13:35 Total Visit Minutes 35 Notes Pt's daughter in law, Ana, present for caregiver training . Partial co-treat w/ OT Physical Therapy Visit Comments Patient Comments Pt is willing to participate with PT Therapy Pain Assessment Pain When Pain Assessed During Mobility Pain Present Pain Present Pain Reported M4 PT-IP Mobility and Gait Start: 10/22/20 08:57 Freq: NEEDED Status: Active Protocol: Document 10/23/20 13:00 KS (Rec: 10/23/20 14:47 KS [id number]) PT-Bed Mobility Assessment Rolling Type of Rolling Log Rolling,Roll to Right Level of Assist Contact Guard Assistance,1 Person Assistance Supine to Sit Supine to Sit Minimal Assistance,1 Person Assistance,Bedrails Sit to Supine Sit to Supine Minimal Assistance,1 Person Assistance Scooting Scooting to Edge of Bed Standby Assistance Scooting Up and Down in Bed Standby Assistance PT-Transfer Assessment Sit to and From Stand Sit to and from Stand Contact Guard Assistance,1 Person Assistance,Use of Upper Extremities Equipment Transfer Assistive Device Gait Belt,Front Wheeled Walker Orthotic/Prosthetic Devices or Brace: No Transfers Transfer Destination Bed,Toilet,Wheelchair Transfer Technique pt ambulated w/ FWW Transfer Ability Level of Assist Minimal Assistance,1 Person Assistance Comments Mobility Comments Pt in bed w/ DIL present upon arrival from PT and OT. CGA and cues for logroll, Min A for sidelying<>sit. Once sitting, pt was able to scoot herself to EOB SBA. CGA and cues for sit<>Stand w/ FWW, DIL observing. Pt then ambulated ~10 ft to toilet w/ FWW, left w/ OT. After toileting, pt ambulated ~20 ft to w/c in hallway to be transported to stairs for energy conservation. Pt then ascended/descended 3 steps w/ R rail ascending, step to pattern, with cues and CGA safely and appropriately provided by patients DIL. Pt then ambulated ~70 ft back towards room w/ FWW and CGA provided by pts DIL, w/c for remaining distance. Pts DIL then provided pt with CGA to transfer from w/c to bed and was able to provide Min A for pts sit<>Sidelying and logroll back into bed. DIL confirms she will get FWW for pts home use and feels safe to assist pt at home. Gait Assessment Gait Gait Assistance Required: Contact Guard Assist Distance (Feet) 100 Able to Maintain Weight Bearing Status Yes During Gait Assistive Devices Assistive Device Gait Belt,Front Wheeled Walker Orthotic/Prosthetic Devices or Brace: No Gait Deviations General Gait Pattern Antalgic,Decreased Stride Length,Decreased Feet Clearance,Flexed Trunk Factors Limiting Gait Function Factors Limiting Gait Function Decreased Activity Tolerance, Decreased Sensation,Decreased Strength,Limited Range of Motion,Pain,Poor Balance Comments Gait Comments Pt ambulated ~100 ft total w/ FWW and CGA. Pt ambulated slowly with step through pattern. Stair Climbing Assessment Evaluation Level of Assist On Stairs Contact Guard Assistance,1 Person Assistance Devices Stair Climbing Assistive Devices Right Railing Technique/Endurance Stair Climbing Direction Ascend and Descend Stair Climbing Technique Step to Step Number of Steps Climbed 3 Stair Climbing Set # Repetitions (reps) 1 Comments Stair Climbing Comments Pt ascended/descended 3 steps w/ R rail ascending step to pattern w/ CGA and cues provided by pts DIL. Pt and DIL state they feel safe to complete stairs at home. Pt verbalized high level of fatigue following stairs. PT-Balance Assessment Sitting Balance and Reactions Static Sitting Balance Ability Good Dynamic Sitting Balance Ability Good Standing Balance and Reactions Static Standing Balance Ability Good Dynamic Standing Balance Ability Good Device Used FWW M5 PT-IP Objective Assessments Start: 10/22/20 08:57 Freq: NEEDED Status: Active Protocol: Document 10/22/20 09:53 AW (Rec: 10/22/20 12:03 AW [id number]) Orientation Orientation/Cognition Level of Alertness Alert Orientation Name,Day of Week,Place, Situation Language Function Ability No Deficits Noted Safety Awareness Understands Safety Issues Memory Description No Deficits Noted Gross Range of Motion Lower Extremity ROM Assessment Bilaterally Impaired Strength Lower Extremity Strength Assessment Bilaterally Impaired Hip 3+/5 Knee 4-/5 Ankle 4/5 Comments Strength Comments Strength was symmetrical. Hip exam limited by pain. Sensation Assessment Sensation Gross Sensation Right LE Impaired,Left LE Impaired Light Touch Impaired Proprioception (Position) Impaired Comments Sensation Comments Pt reports pain in bilateral posterior thighs. Dull light touch sensation in bilateral feet. M6 PT-IP Treatment Start: 10/22/20 08:57 Freq: NEEDED Status: Active Protocol: Document 10/23/20 13:00 KS (Rec: 10/23/20 14:47 KS [id number]) Physical Therapy Treatment Education Education Provided Precautions,Weight Bearing Status,Post-Op Packet,Safety Other Treatments Other Treatment Performed Reveiwed precautions, pt able to recall 3/3. Completed caregiver training w/ pts daughter. M7 PT-IP Assessment and Plan Start: 10/22/20 08:57 Freq: NEEDED Status: Active Protocol: Document 10/23/20 13:00 KS (Rec: 10/23/20 14:47 KS [id number]) PT Summary Assessment and Plan Potential Rehabilitation Potential Good Status of Condition at Evaluation Evolving Summary Impairments Pain,ROM,Strength,Balance, Sensation,Bed Mobility, Transfers,Gait,Activity Tolerance Progress Towards Goals Slow Progress due to Pain Assessment Summary Patient showed improved tolerance for activity today and was able to ambulate ~100 ft total w/ FWW as well as ascend/descend 3 steps w/ CGA. Completed caregiver training w/ pts CHRIS who was able to provide appropriate assist and cues during ambulation, stair training, and transfers. Pts DIL states she feels safe to assist pt at home. Patients DIL confirms she will obtain FWW from outside source for pt to use at home. Goals Bed Mobility Goal Standby Assistance Transfer Goal Standby Assistance,Front Wheeled Walker Gait Goal Standby Assistance,Front Wheel Walker Gait Distance 100 Other Goals - up/down 4 steps with unilateral rail CGA Days to Meet Goals 5 Frequency of Treatment Frequency Of Treatment Twice a Day Treatment Plan Physical Therapy Treatment Plan Bed Mobility Training,Transfer Training,Gait Training, Therapeutic Exercise,Balance Retraining,Post Op Education, Discharge Planning,Hot or Cold Pack,Neuromuscular Re-ed Other Recommendations and Next Treatment review precautions, mobility Focus as tolerated Recommendations To Nursing Amount of Assist Needed 1 Person Assist Discharge Recommendations PT Discharge Recommendations Home with Assistance,Home Health,Outpatient PT Other Discharge Recommendations home with assist and HH vs OP PT Equipment Needed for Home Before FWW- pts DIL to acquire Discharge Transportation Needs at Discharge Private Vehicle
--- NOTE | 2020-10-23 14:19 | PC.NURSE ---
PATIENT ANXIOUS AND CRYING THIS MORNING, I'M JUST SO SCARED THAT I'M GOING TO MOVE WRONG AND TEAR SOMETHING, AND THAT THIS PAIN ISN'T GOING TO GET BETTER.. VERBAL RE-ASSURANCE PROVIDED. RE-ITERATED CHANGE IN MED REGIMEN PER ORTHO PA. PATIENT AGREEABLE TO NEW PLAN, SMILING AFTER BREAKFAST, LOOK, I FEEL SO MUCH BETTER!. COOPERATIVE WITH CARE ASSISTED PATIENT TO BR, TO STAND AT SINK AND BRUSH TEETH AND HAIR AND BACK TO BED. DECLINED OFFER TO SIT IN RECLINER AT THAT TIME.
[2020-10-23 15:57] VITALS: BP 125/78; PULSE 85; RESP 18; TEMP 36.2; O2SAT 94
--- NOTE | 2020-10-23 17:48 | PC.NURSE ---
Addendum entered by Anne Patiño R.N. 10/23/20 22:28: Pt uses call light to summon staff earlier this shift. Pt in bed crying stating needs to use the bathroom. Pt was reassured this can be easily managed. Pt composes self and moves self in bed attempting to get up. Requires repeated instruction on technique to get up from bed and back into bed utilizing log rolling. Returned to bed and no longer tearful. Resting quietly @ this hour in bed on left side. Eyes closed without signs of distress or discomfort. Original Note: Pt reports leg pain 7.5/10. Admits to full sensation to BL LE's. Medicated as per emar. Pt is able to move self from bed to standing and ambulate to bathroom with walker and standby assistance. Does require verbal cueing for log rolling and to recall precautions s/p back surgery. Dressing to central lower back is dry and intact. BL foot pumps replaced upon pt's return to bed from toileting and up to sink. Discussed with pt remaining up to chair for dinner or even sitting up @ bedside and pt declines. I.S. with reminder to > 2000. Conversant with staff. Easily tearful.
[2020-10-23 19:46] VITALS: BP 117/78; PULSE 98; RESP 18; TEMP 37.1; O2SAT 95
[2020-10-23] MEDS: SENNOSIDES 8.6 MG TABLET 17.2 MG PO (20:59)
[2020-10-24] MEDS: HYDROMORPHONE 2 MG TABLET PO ×4 (01:11→12:57)
[2020-10-24 01:20] VITALS: BP 130/69; PULSE 83; RESP 20; TEMP 36.5; O2SAT 98
[2020-10-24 04:29] VITALS: BP 155/92; PULSE 87; RESP 22; O2SAT 99
[2020-10-24] MEDS: CHLORTHALIDONE 25 MG TABLET PO (08:44)
[2020-10-24] MEDS: SODIUM CHLORIDE 0.9% FLUSH 10 ML IV (08:45)
[2020-10-24] MEDS: DOCUSATE 100 MG CAPSULE PO (08:45)
[2020-10-24] MEDS: ALPRAZolam 0.5 MG TABLET PO (08:45)
[2020-10-24 08:49] VITALS: BP 134/89; PULSE 103; RESP 16; TEMP 36.8; O2SAT 98
[2020-10-24] MEDS: VENLAFAXINE ER 75 MG CAP 150 MG PO (08:52)
[2020-10-24] MEDS: BUSPIRONE 5 MG TABLET 10 MG PO (08:54)
--- NOTE | 2020-10-24 09:51 | PT.IPTN ---
Current Diagnoses Spondylolisthesis, lumbosacral region (10/22/20) Spinal stenosis, lumbar region without neurogenic claudication (10/22/20) Surgery Performed Operation Date: 10/21/20 12:15 Actual Procedures p L5-S1 TLIF(Not Applicable) - Ray Davila MD Physical Therapy Treatment Note M2 PT-IP Current Condition Start: 10/22/20 08:57 Freq: NEEDED Status: Active Protocol: Document 10/22/20 09:53 AW (Rec: 10/22/20 11:46 AW [id number]) Physical Therapy Current Condition Current Condition Evaluation Date 10/22/20 Treatment Diagnosis L5-S1 TLIF; impaired mobility and gait Onset Date 10/21/20 Precautions Lumbar Precautions Log Roll,No Twisting,Limit Bending,Lifting Restriction of 10 lbs,Gait Belt above Incisional Area M3 PT-IP Subjective Start: 10/22/20 08:57 Freq: NEEDED Status: Active Protocol: Document 10/24/20 09:25 KS (Rec: 10/24/20 11:44 KS [id number]) Subjective Physical Therapy Visit Type Type Treatment Note Visit Start Time 09:25 Visit Stop Time 09:51 Total Visit Minutes 26 Physical Therapy Visit Comments Patient Comments Pt is willing to participate with PT M4 PT-IP Mobility and Gait Start: 10/22/20 08:57 Freq: NEEDED Status: Active Protocol: Document 10/24/20 09:25 KS (Rec: 10/24/20 11:44 KS [id number]) PT-Bed Mobility Assessment Rolling Type of Rolling Log Rolling,Roll to Right Level of Assist Standby Assistance,Contact Guard Assistance,1 Person Assistance Supine to Sit Supine to Sit Contact Guard Assistance,1 Person Assistance Sit to Supine Sit to Supine Contact Guard Assistance,1 Person Assistance Scooting Scooting to Edge of Bed Standby Assistance Scooting Up and Down in Bed Standby Assistance PT-Transfer Assessment Sit to and From Stand Sit to and from Stand Contact Guard Assistance,1 Person Assistance,Use of Upper Extremities Equipment Transfer Assistive Device Gait Belt,Front Wheeled Walker Orthotic/Prosthetic Devices or Brace: No Transfers Transfer Destination Bed,Toilet Transfer Technique pt ambulated w/ FWW Transfer Ability Level of Assist Contact Guard Assistance,1 Person Assistance,Use of Upper Extremities Comments Mobility Comments Pt in bed upon arrival from therapy. SBA to CGA for logroll, CGA for sidelying<> sit, SBA for scooting to EOB. CGA for sit<>stand w/ FWW. Once standing, patient ambulated to and transferred to toilet CGA. Pt then ambulated to sink and was able to remain balanced at sink while handwashing. Pt then ambulated additional ~20 ft around room w/ 4WW. Pt demonstrated good use of 4WW, but required min cues for brake application. Pt then returned to bed, CGA and cues for logroll back into bed. Pt able to recall 3/3 precautions and left in bed w/ all needs in reach. Gait Assessment Gait Gait Assistance Required: Contact Guard Assist Distance (Feet) 40 Able to Maintain Weight Bearing Status Yes During Gait Assistive Devices Assistive Device Gait Belt,Front Wheeled Walker ,4 Wheeled Walker Orthotic/Prosthetic Devices or Brace: No Gait Deviations General Gait Pattern Antalgic,Decreased Stride Length,Decreased Feet Clearance,Flexed Trunk Factors Limiting Gait Function Factors Limiting Gait Function Decreased Activity Tolerance, Decreased Sensation,Decreased Strength,Limited Range of Motion,Pain,Poor Balance Comments Gait Comments Pt ambulated ~40 ft total w/ FWW (20ft) and 4WW (20ft) and CGA. Pt ambulated slowly with step through pattern. Pt is safe to use 4WW at home, however DIL is acquiring FWW for home use as well. Stair Climbing Assessment Comments Stair Climbing Comments not assessed. PT-Balance Assessment Sitting Balance and Reactions Static Sitting Balance Ability Good Dynamic Sitting Balance Ability Good Standing Balance and Reactions Static Standing Balance Ability Good Dynamic Standing Balance Ability Good Device Used FWW and 4WW M5 PT-IP Objective Assessments Start: 10/22/20 08:57 Freq: NEEDED Status: Active Protocol: Document 10/22/20 09:53 AW (Rec: 10/22/20 12:03 AW [id number]) Orientation Orientation/Cognition Level of Alertness Alert Orientation Name,Day of Week,Place, Situation Language Function Ability No Deficits Noted Safety Awareness Understands Safety Issues Memory Description No Deficits Noted Gross Range of Motion Lower Extremity ROM Assessment Bilaterally Impaired Strength Lower Extremity Strength Assessment Bilaterally Impaired Hip 3+/5 Knee 4-/5 Ankle 4/5 Comments Strength Comments Strength was symmetrical. Hip exam limited by pain. Sensation Assessment Sensation Gross Sensation Right LE Impaired,Left LE Impaired Light Touch Impaired Proprioception (Position) Impaired Comments Sensation Comments Pt reports pain in bilateral posterior thighs. Dull light touch sensation in bilateral feet. M6 PT-IP Treatment Start: 10/22/20 08:57 Freq: NEEDED Status: Active Protocol: Document 10/24/20 09:25 KS (Rec: 10/24/20 11:44 KS [id number]) Physical Therapy Treatment Education Education Provided Precautions,Weight Bearing Status,Post-Op Packet,Safety Other Treatments Other Treatment Performed Reveiwed precautions, pt able to recall 3/3. M7 PT-IP Assessment and Plan Start: 10/22/20 08:57 Freq: NEEDED Status: Active Protocol: Document 10/24/20 09:25 KS (Rec: 10/24/20 11:44 KS [id number]) PT Summary Assessment and Plan Potential Rehabilitation Potential Good Status of Condition at Evaluation Evolving Summary Impairments Pain,ROM,Strength,Balance, Sensation,Bed Mobility, Transfers,Gait,Activity Tolerance Assessment Summary Pt showed improved ability to perform logroll and sidelying< >sit. SBA to CGA for mobility, CGA for sit<>Stand and transfers as well as ambulation w/ FWW and 4WW. Pts DIL is able to provide pt w/ cues and appropriate assist w/ transfers, bed mobility, ambulation, and stairs. Pt safe to use 4WW, however DIL also acquiring FWW for pts home use. Pt safe to return home when medically stable w/ DIL providing assistance. Goals Bed Mobility Goal Standby Assistance Transfer Goal Standby Assistance,Front Wheeled Walker Gait Goal Standby Assistance,Front Wheel Walker Gait Distance 100 Other Goals - up/down 4 steps with unilateral rail CGA Days to Meet Goals 5 Frequency of Treatment Frequency Of Treatment Twice a Day Treatment Plan Physical Therapy Treatment Plan Bed Mobility Training,Transfer Training,Gait Training, Therapeutic Exercise,Balance Retraining,Post Op Education, Discharge Planning,Hot or Cold Pack,Neuromuscular Re-ed Other Recommendations and Next Treatment review precautions, mobility Focus as tolerated Recommendations To Nursing Amount of Assist Needed 1 Person Assist Discharge Recommendations PT Discharge Recommendations Home with Assistance,Home Health,Outpatient PT Other Discharge Recommendations home with assist and HH vs OP PT Equipment Needed for Home Before FWW- pts DIL to acquire Discharge Transportation Needs at Discharge Private Vehicle
--- NOTE | 2020-10-24 09:57 | PM.DS.1 ---
History of Present Illness History of Present Illness Date Patient Seen: 10/24/20 Time Patient Seen: 09:57 Chief complaint: OPB Narrative: Patient has been having chronic back pain and worsening lumbar radiculopathy. Patient failed multiple conservative management with worsening pain weakness and numbness in her lower extremity. Patient has been having difficulty performing activity of daily living. After discussing risks benefits of treatment options, patient elected proceed with surgery. Discharge Providers Provider Date of admission: 10/22/20 10:05 Discharge Date: 10/24/20 Primary care physician: Doctor Romeo MD Consults: 10/21/20 15:54 Consult to Occupational Therapy Evaluate & Treat Comment: Physician Instructions: Evaluate and treat Consult to Physical Therapy Evaluate & Treat Comment: Physician Instructions: Evaluate and Treat 10/22/20 09:19 Consult to Occupational Therapy Evaluate & Treat Comment: s/p L5-S1 TLIF Physician Instructions: Evaluate and treat Discharge provider: Cassandra Mims PA-C Summary Hospital Course Discharge Diagnosis: s/p TLIF Anxiety Hospital Course: Aleena admitted for a TLIF with Dr. Davila. She consented to procedure. Patient has been slow to mobilize. Her pain is well controlled with Dilaudid and Vistaril. She has mobilized with PT throughout her stay. She is eating and voiding without difficulty or assistance. She was ready for discharge on POD #3. Status at Discharge Functional status at discharge: uses cane/walker Exam Vital Signs (past 8 hours): - 10/24/20 04:29 10/24/20 08:49 Temperature 98.2 F Pulse Rate 87 103 H Respiratory Rate 22 16 Blood Pressure 155/92 H 134/89 Pulse Oximetry 99 98 Oxygen Delivery Method Room Air Oxygen Flow Rate 0 Narrative Exam Narrative: Patient lying in bed in NAD. She is alert and oriented X3. Calves are soft, compressible, and nontender bilaterally. Dressing on back is CDI. She is able to actively dorsiflex and plantarflex. SILT throughout BLEs. No complaints this AM. [facility] Medical History Anxiety Arthritis Brain aneurysm (1990) Depression HTN (hypertension) Internal bleeding (~2011) Pre-diabetes (10/2020) Sciatica Tremor Surgical History Hx of BSO (bilateral salpingo-oophorectomy) (01/2020) Hx of thyroidectomy Social History household members: children and none Smoking Status: Former smoker alcohol intake: current Discharge Plan Discharge Plan Patient Disposition: Home Discharge orders & Medications Prescriptions: New docusate sodium [DOK] 100 mg Capsule 100 mg PO BID Qty: 20 RF: 0 hydroxyzine pamoate 25 mg Capsule 25 mg PO Q6-8H PRN (Reason: Nausea And Vomiting) Qty: 30 RF: 0 hydromorphone [Dilaudid] 2 mg tablet 2 mg PO Q4-6H PRN (Reason: pain) Qty: 50 RF: 0 Continued venlafaxine 150 mg Capsule,Extended Release 24hr 150 mg PO DAILY RF: 0 chlorthalidone 25 mg Tablet 25 mg PO DAILY RF: 0 acetaminophen 650 mg Tablet Extended Release 1,300 mg PO DAILY PRN (Reason: Pain) RF: 0 alprazolam 0.5 mg Tablet 0.25 - 0.5 mg PO DAILY PRN (Reason: Anxiety, sleep) RF: 0 buspirone 10 mg Tablet 10 mg PO BID RF: 0 naproxen 500 mg Tablet 500 mg PO BID RF: 0 Discontinued ibuprofen 800 mg Tablet 800 mg PO TID PRN (Reason: Pain) RF: 0 Follow up/Referrals: Ray Davila MD [Physician] - Doctor Walters MD [Primary Care Provider] - Diet/Activity/Treatments Activity: No excessive bending, lifting, or twisting Skin/Wound/Dressing Care Report to your healthcare provider any signs of infection, such as:: chills, fever and increased pain Dressing: leave in place until appointment. Please call if saturated. Discharge Data Primary Care Provider: Doctor Romeo Attending Provider: Ray Davila Quality VTE Deep Vein Thrombosis/Pulmonary Embolism Present on Admission: No
--- NOTE | 2020-10-24 11:00 | OT.IPNOTE ---
Attempted to see pt for OT services with plan for shower. Pt states she is planning to do with nursing. Nursing agreeable and no further OT needs. Pt planned for discharge home today with family support.
--- NOTE | 2020-10-24 12:19 | PC.NURSE ---
Addendum entered by Anna López R.N. 10/24/20 13:03: Patient given discharge instructions, daughter bedside. Verbalized understanding. IV removed. Patient tolerated. Patient discharged via wheelchair with SPRINKLER TENDER assist. Original Note: Patient A/Ox4 this AM. Sitting up in bed eating breakfast, c/o pain 04/17. Scheduled dilaudid administered. Patient tearful with happiness at times, Xanax PRN administered. Patient reports she is feeling much better today. Lungs clear, LE pulses equal bilaterally and WNL. Back dsg is CDI, patient log-rolling in bed and up with PT. IV is patent in Left FA. No complaints or concerns at this time. Patient anticipates d/c today. Call light in reach.
== END 2020-10-24 13:05 | disposition home or self-care (01) ==
LOC: OR 13:01 → AC 13:01
PROVIDERS: Admitting Provider Orthopaedic Surgery Orthopaedic Surgery of the Spine; Referring Provider Orthopaedic Surgery Orthopaedic Surgery of the Spine; Visit Provider Orthopaedic Surgery Orthopaedic Surgery of the Spine
PROC: (CPT 22633; principal; 2020-10-21 12:15)
DX: M48.061 Spinal stenosis, lumbar region without neurogenic claudication (principal); M54.16 Radiculopathy, lumbar region; M43.17 Spondylolisthesis, lumbosacral region; F41.9 Anxiety disorder, unspecified; I10 Essential (primary) hypertension; R73.03 Prediabetes; R25.1 Tremor, unspecified
CPT/HCPCS: 22633; 22840; 22853; 20939; 72100; 76000; 97116; 97161; 97165; 97530; 97535; C1776; G0378; C9290; J0330; J1100; J1170; J2405; J2704; J3010

== ENCOUNTER → 2021-02-15 09:20 | Outpatient (CLI) | payer MEDICARE, OTHER, SELFPAY ==
[2020-10-21 16:01] VITALS: BMI 23.7
[2021-02-15 12:10] LABS: COVID19 -Nasal RAPID Negative (Negative)
== END ==
PROVIDERS: Visit Provider Student in an Organized Health Care Education/Training Program
DX: Z01.812 Encounter for preprocedural laboratory examination (principal); Z20.822 Contact with and (suspected) exposure to COVID-19
CPT/HCPCS: 87635; C9803

== ENCOUNTER 2021-02-16 11:47 | Day surgery (SDC) | payer MEDICARE, OTHER, SELFPAY ==
[2020-10-21 16:01] VITALS: BMI 23.7
[2021-02-09 09:46] VITALS: BMI 21.9
[2021-02-16] VITALS (21 sets, daily range): BP systolic 104–186; BP diastolic 63–97; PULSE 70–92; RESP 10–21; TEMP 36.4–37.4; O2SAT 92–100; BMI 21.9
--- NOTE | 2021-02-16 06:30 | DI.RAD.S_ITS ---
PROCEDURE: XR HIP W PEL IF DONE LT 2V INDICATIONS: left DERRELL, anterior TECHNIQUE: AP pelvis with lateral view(s) of the left hip(s). COMPARISON: None. FINDINGS: Expected intraoperative appearance of arthroplasty components. Hardware appears intact. Dictated by: Baldo Royal M.D. on 02/16/2021 at 17:58 Approved by: Baldo Royal M.D. on 02/16/2021 at 17:59
[2021-02-16] MEDS: ACETAMINOPHEN 325 MG TABLET 975 MG PO (12:23)
[2021-02-16] MEDS: CELECOXIB 200 MG CAPSULE PO (12:23)
[2021-02-16] MEDS: VANCOMYCIN 1,000 MG/200 ML PIGGYBACK 200 MG IV (13:23)
--- NOTE | 2021-02-16 13:53 | P.OP_ITS ---
Operative Date/Time/Diagnoses Date of procedure: 02/16/21 Time of procedure: 15:05 Pre-op diagnosis: Left hip AVN with collapse Post-op diagnosis: same Procedure & Clinicians Procedure: Left total hip arthroplasty anterior approach Same procedure as scheduled: Yes Indications: The patient has had progressively worsening left hip pain with ra diographic changes consistent with arthritis. Non-operative management has failed and the patient has requested total hip replacement. The risks, benefits and alternatives to surgery were discussed with the patient prior to proceeding. Risks discussed included, but were not limited to, failure to relieve pain, leg length discrepancy, dislocation, stiffness, infection, nerve damage, deep venous thrombosis, pulmonary embolism, stroke, coma, heart attack, permanent paralysis and , as well as the potential need for eventual revision of the prosthetic. Surgeon: Chuyita Hernandez Masonry Contractor Administrator: Juan Carlos Ennis Anesthesia Type: General and Spinal Operative Notes Findings: Severe left hip osteoarthritis, good stability, soft bone Closure Type: primary Specimen(s): none sent Prosthetic devices, grafts, tissues, transplants, or devices: Hernandez [employer] Nephew size 50 R3 cup, neutral poly liner, 32 by +4 Oxinium head, size 6 high offset anthology Estimated Blood Loss (mL): 250 Blood products transfused: none Procedure in detail: The patient was brought to the operating room. Patient was carefully positioned in the supine position. Time-out was performed and antibiotics were given. Anesthesia was induced. She was positioned in the on the table in order to allow hyperextension of the hip. The left lower extremity was prepped and draped in a standard sterile fashion. An anterior left hip incision was made 1 fingerbreadth lateral to the anterior superior iliac spine and extended distally towards the greater trochanter. Dissection was carried out through skin and subcutaneous tissues. The skin and subcutaneous tissues were carefully injected with Lidocaine with epi. Superficial hemostasis was achieved. The fascia over the tensor fascia alton was defined and incised with a knife. Two Allis clamps were used to grasp the fascia. Tensor fascia alton was retracted laterally. A gelpi retractor was placed. Dissection was carried out down along the neck. The circumflex vessels were carefully identified and cauterized with the Aqua Mantis. There was good visualization of the femoral neck. A Cobra was placed superior to the neck and the gluteus fibers were carefully stripped from that superior aspect of the capsule. A 2nd retractor was placed along the inferior aspect of the neck. The rectus insertion along the capsule was partially released. A 3rd retractor that was then gently placed over the rim of the acetabulum under the rectus. Capsule was carefully incised and released from the intertrochanteric line circumferentially superior to the mid sagittal line and inferiorly to the mid sagittal line until the lesser trochanter was palpable. A tag stitch was placed both in the superior and inferior limb of the capsular insertion. Along the acetabulum capsule was also released up to the mid sagittal 12:00 position. A portion of the labrum was resected. A saw was used to perform an osteotomy at the level of the intertrochanteric line and the junction of the superior femoral neck leaving approximately 1 finger breath of residual inferior neck above the lesser trochanter. A 2nd cut was made along the femoral neck at the base of the head and a napkin ring of neck was removed. Corkscrew was placed in the femoral head and the head was removed without difficulty. Retractors were then repositioned around the acetabulum. Residual labrum was resected and additional osteophytes were removed. A reamer that was 4 mm below the templated size was placed by hand in the acetabulum and it was reamed to centralize the acetabulum. It was then reamed up to 2 under the templated size and fluoroscopy was brought in to confirm the position of the reaming and depth of reaming. I reamed 1 under the anticipated size. A trial cup was placed and noted that it was appropriately sized and fluoroscopy confirmed position and depth. The component was open and inserted without difficulty fluoroscopic imaging was used to confirm that the cup had been adequately seated and was well positioned. The cup was further stabilized with a single screw. Neutral poly liner was placed. The cup was tested and noted to be stable. Attention was then directed to the femur. The femur was gently hyperextended additional capsular release was performed as needed in order to allow adequate visualization of the proximal femur with elevation of the femur. Patient was placed in a hyperextended slightly adducted position with maximum external rotation. Box osteotome was used to check for any residual neck as well as sclerotic bone along the trochanter. [place] pepper was placed in the femur. Additional broaching was performed. Canal finder was used to determine the alignment of the canal and position. Size 1 broach was placed. The canal was then appropriately broached up to the templated size as long as there was adequate stability of the broach and serial advancement of the broach without excessive impingement. Specific attention was directed at avoiding varus attempting to direct the distal aspect of the broach more anteriorly and avoiding excessive anteversion. Trial reduction showed acceptable range of motion, good stability, no posterior impingement, taoist of leg length and appropriate lateral shuck. She actually had a very lax hip I initially did a trial with the +0 and standard offset the hip had no evidence of impingement but had abnormal soft tissue tension and was somewhat lax. I also tried a high offset and checked that with fluoroscopy it showed acceptable offset leg lengths and component position and there was improved tension. I also hyperflexed the hip and checked that there was no impingement anteriorly and there was good stability with flexion, adduction and internal rotation. Marcaine and Exparel were injected. The stem was placed without difficulty. Repeat trial reduction and x-ray showed acceptable overall position, length, and no evidence of the femoral fracture. I tried did a trial of both the 0 and a +4 and there was excellent stability with a +4 and better soft tissue tension in the did not feel excessively lengthened. She is developing progressive AVN and collapse on the contralateral side. Final head was placed. Wound was meticulously irrigated with normal saline. The hip was reduced and additional Exparel and Marcaine were injected. The capsule was closed with interrupted nonabsorbable sutures. The fascia of the tensor was closed with interrupted and running Vicryl. No drain was placed. Any tensor fascia alton muscle that appeared to be contused or injured which was a minimal amount was carefully resected. Capsule around the tensor was injected with Exparel and Marcaine. The skin was closed with barbed stitches for the subcutaneous tissue and skin. We also used surgical glue. The wound was dressed sterilely. Brief Betadine soak was also used and was meticulously irrigated with normal saline. Patient was transferred to recovery room in satisfactory condition. Complications: none Post-operative Condition: stable Disposition: Acute Care Plan for aftercare: The patient will be maintained on a standard total hip replacement protocol with weight bearing as tolerated and anterior hip precautions. The patient will receive Aspirin and sequential compression devices for DVT prophylaxis. The patient will be discharged home when safe for the home environment.
--- NOTE | 2021-02-16 13:53 | PM.PREOP ---
Pre-operative Note Interval Note History & Physical reviewed/Exam performed by Physician: Yes Changes to H&P: No
[2021-02-16] MEDS: MIDAZOLAM 2 MG/2 ML VIAL IV (14:12)
[2021-02-16] MEDS: fentaNYL 100 MCG/2 ML INJ 50 MCG IV (14:12)
[2021-02-16] MEDS: CEFAZOLIN 2 GM/100 ML FROZ.PIGGY IV ×2 (14:21→21:10)
--- NOTE | 2021-02-16 14:30 | DI.RAD.S_ITS ---
PROCEDURE: XR HIP W PEL IF DONE LT 2V INDICATIONS: LEFT POST OP HIP TECHNIQUE: 2 view(s) of the hip acquired. COMPARISON: [facility], JOSÉ MIGUEL, XR HIP W PEL IF DONE LT 2V, 02/16/2021, 16:05. FINDINGS: Bones: Patient is status post left hip arthroplasty, with hardware components in expected positions. The hip joint appears congruent. The visualized bony structures appear intact. Soft tissues: Overlying postoperative changes are noted. No suspicious soft tissue densities. IMPRESSION: Normal alignment after left total hip arthroplasty. Note is made of moderately severe right hip degenerative changes with near [id number] articulation. Dictated by: Solomon Zhou M.D. on 02/17/2021 at 8:53 Approved by: Solomon Zhou M.D. on 02/17/2021 at 8:54
[2021-02-16] MEDS: TRANEXAMIC ACID 1,000 MG VIAL 2000 MG INJ ×2 (14:49→17:02)
--- NOTE | 2021-02-16 15:04 | SUR.OPER ---
Supine on padded [place] table with bilateral legs secured in padded positioning boots and suspended in positioning spars, operative leg in traction per surgeon. Head on one pillow. Arm on non-operative side secured on padded armboard <90 degrees abduction. Arm on operative side padded and resting across chest then secured with tape over sheet. Padded perineal post in place per surgeon.
[2021-02-16] MEDS: BUPIVACAINE 0.25% W/ EPI 30 ML VIAL 60 ML INJ (15:14)
[2021-02-16] MEDS: BUPIVACAINE LIPOSOME 266 MG/20 ML VIAL INJ (15:14)
[2021-02-16] MEDS: LACTATED RINGERS 1,000 ML 42 ML IV (15:37)
[2021-02-16] MEDS: LORazepam 2 MG/ML INJ 0.25 MG IV (18:08)
[2021-02-16] MEDS: HYDROMORPHONE 2 MG INJ IV ×2 (18:12→18:20)
[2021-02-16] MEDS: hydrOXYzine 50 MG/ML INJ 25 MG IM (18:29)
--- NOTE | 2021-02-16 18:36 | SUR.PHASEI ---
Report off to JOE Funes.
--- NOTE | 2021-02-16 18:39 | SUR.PHASEI ---
[id number] report received, assume care
[2021-02-16] MEDS: LACTATED RINGERS 1,000 ML 125 ML IV (19:51)
[2021-02-16] MEDS: DOCUSATE 100 MG CAPSULE PO (21:14)
[2021-02-16] MEDS: ASPIRIN EC 81 MG TABLET PO (21:14)
[2021-02-16] MEDS: IBUPROFEN 400 MG TABLET PO (21:15)
[2021-02-16] MEDS: ACETAMINOPHEN 325 MG TABLET 650 MG PO (21:15)
[2021-02-16] MEDS: TRAMADOL 50 MG TABLET PO (21:15)
[2021-02-17 00:30] VITALS: BP 158/85; PULSE 85; RESP 18; TEMP 36.7; O2SAT 99
[2021-02-17] MEDS: IBUPROFEN 400 MG TABLET PO ×4 (00:39→13:31)
--- NOTE | 2021-02-17 00:49 | PC.NURSE ---
pt was 1pa to the [facility]. pt able to void without difficulty. pain controlled with tramadol and advil.
[2021-02-17] MEDS: OXYCODONE IR 5 MG TABLET PO (03:39)
[2021-02-17 04:01] VITALS: BP 150/85; PULSE 89; RESP 18; TEMP 36.7; O2SAT 98
[2021-02-17] MEDS: LACTATED RINGERS 1,000 ML 125 ML IV (04:50)
[2021-02-17] MEDS: CEFAZOLIN 2 GM/100 ML FROZ.PIGGY IV (05:03)
[2021-02-17] MEDS: ALPRAZolam 0.5 MG TABLET 0.25 MG PO (06:27)
[2021-02-17 06:57] VITALS: O2SAT 99
[2021-02-17 06:59] LABS: Hematocrit 30.7 % (36-46); Hemoglobin 10.1 g/dL (12.0-16.0)
[2021-02-17] MEDS: HYDROMORPHONE 2 MG TABLET PO ×3 (07:13→14:51)
--- NOTE | 2021-02-17 07:42 | PM.PNPO.1 ---
Subjective Subjective Date Patient Seen: 02/17/21 Time Patient Seen: 07:42 Interval history: Patient states she is doing well overall and is in minimal discomfort at rest. Patient denies fever, chills, nausea, chest pain, shortness of breath, or urinary retention at this time. Patient notes that she has good sensation throughout the bilateral lower extremities light touch. She explains she is looking forward working with physical therapy. Exam Vital Signs (past 8 hours): - 02/17/21 00:30 02/17/21 04:01 Temperature 98.0 F 98.0 F Pulse Rate 85 89 Respiratory Rate 18 18 Blood Pressure 158/85 H 150/85 H Pulse Oximetry 99 98 Oxygen Delivery Method Room Air Oxygen Flow Rate 0 Narrative Exam Narrative: Pleasant 70-year-old female postop day 1 status post left total hip arthroplasty. Patient is resting comfortably in bed, is in no acute distress, is alert and oriented x3. Skin is warm and dry, and the skin surrounding the incision site is free of erythema, warmth, induration, or discharge. Dressing over the incision is clear of strike through and is clean and dry. Good sensation appreciated throughout the bilateral lower extremities to light touch. Hip flexion performed bilaterally, right greater than left. Ankle dorsiflexion, plantar flexion, eversion, inversion performed bilaterally without difficulty or discomfort. Palpable pulses appreciated, capillary refill less than 2 seconds. Calves are soft nontender, negative Homans sign. No other signs of DVT appreciated. Const General: cooperative, healthy appearing and comfortable Resp Effort & Inspection: normal respiratory effort and able to speak in complete sentences Skin General: no rashes or lesions noted Objective Labs Result Diagrams: 02/17/21 06:30 Labs: Laboratory Results - last 24 hr 02/17/21 06:30 Hgb 10.1 L Hct 30.7 L PFSH Medical History Anxiety Arthritis Brain aneurysm (1990) Depression HTN (hypertension) Internal bleeding (~2011) Pre-diabetes (10/2020) Sciatica Tremor Surgical History History of lumbar spinal fusion (10/21/20) Hx of BSO (bilateral salpingo-oophorectomy) (01/2020) Hx of thyroidectomy Social History household members: none Smoking Status: Former smoker alcohol intake: current Assessment & Plan Post-op Postoperative Procedures: Procedures Operation Date: 02/16/21 13:45 Actual Procedures Side Surgeon p Total Hip Arthroplasty/Anterior Approach Left Chuyita Hernandez MD Postoperative day: 1 Postoperative status: doing well Postoperative plan: ambulate Postoperative plan narrative: Patient is to continue working with physical therapy on ambulation with the assistance of a front wheeled walker. Patient is to remain in standard total hip replacement protocol to be weight-bearing as tolerated with anterior hip replacement precautions. Aspirin 81 mg twice daily is to be continued for DVT prophylaxis along with SCDs. Patient is to continue current pain management regimen as is currently adequately controlling the patient's pain level.
[2021-02-17] MEDS: ACETAMINOPHEN 325 MG TABLET 650 MG PO ×2 (09:23→14:51)
[2021-02-17] MEDS: DOCUSATE 100 MG CAPSULE PO (09:23)
[2021-02-17] MEDS: TRAMADOL 50 MG TABLET PO ×2 (09:24→13:31)
[2021-02-17] MEDS: CHLORTHALIDONE 25 MG TABLET PO (09:24)
[2021-02-17] MEDS: ASPIRIN EC 81 MG TABLET PO (09:24)
[2021-02-17] MEDS: VENLAFAXINE ER 75 MG CAP 150 MG PO (09:24)
[2021-02-17 10:01] VITALS: BP 140/89; PULSE 103; RESP 16; TEMP 37.1; O2SAT 103
--- NOTE | 2021-02-17 10:10 | PT.IIE ---
Current Diagnoses Unilateral primary osteoarthritis, left hip (02/16/21) Surgery Performed Operation Date: 02/16/21 13:45 Actual Procedures p Total Hip Arthroplasty/Anterior Approach(Left) - Chuyita Hernandez MD Surgical History (Last Reviewed 02/17/21 @ 11:56 by Ranjit Sweet PA-C) History of lumbar spinal fusion (10/21/20) Hx of BSO (bilateral salpingo-oophorectomy) (01/2020) Hx of thyroidectomy Medical History (Last Reviewed 02/17/21 @ 11:56 by Ranjit Sweet PA-C) Anxiety Arthritis Brain aneurysm (1990) Depression HTN (hypertension) Internal bleeding (~2011) Pre-diabetes (10/2020) Sciatica Tremor Physical Therapy Inpatient Evaluation/Re-Eval M1 PT/OT-IP Prior Functional Status Start: 02/17/21 12:09 Freq: NEEDED Status: Active Protocol: Document 02/17/21 10:10 AB (Rec: 02/17/21 12:24 AB [id number]) Medical Review Prior Functional Status Medical History Reviewed Yes Communication able to make needs known Mobility and Gait pt stated that she is independent with all mobilities and ambulation using FWW indoors but usesa SPC for outdoor mobility Social History Household Members none Living Arrangements House Number of Floors (Floors) One Floor Number of Stairs To Enter/Railing? 3 steps with bilateral wide rails to enter; can only hold on to one rail at a time has 1 steps down to bedroom level Home Environment Standard Height Toilet,Walk in Shower Home Equipment Front Wheel Walker,Straight Cane,Raised Toilet Seat w/ Armrests,Shower Seat without Backrest,Hand Held Shower Additional Social History Comment pt stated that her sister will stay with her for 2 days to assist her; son will be available to assist as needed but pt is not sure if son will be able to stay with her M2 PT-IP Current Condition Start: 02/17/21 12:09 Freq: NEEDED Status: Active Protocol: Document 02/17/21 10:10 AB (Rec: 02/17/21 12:24 AB [id number]) Physical Therapy Current Condition Current Condition Evaluation Date 02/17/21 Treatment Diagnosis s/p L DERRELL anterior approach; difficulty in walking Onset Date 02/16/21 Precautions Anterior Hip Precautions No Hip Extension,No Hip External Rotation Weight Bearing Status Weight Bearing Status Weight Bear as Tolerated Allowed Weight Bearing Amount (enter % LLE WBAT or #) (%) M3 PT-IP Subjective Start: 02/17/21 12:09 Freq: NEEDED Status: Active Protocol: Document 02/17/21 10:10 AB (Rec: 02/17/21 12:24 [email or web address]) Subjective Physical Therapy Visit Type Type Initial Evaluation Visit Start Time 10:10 Visit Stop Time 11:10 Total Visit Minutes 60 Number of SCIENTIFIC PROGRAMMER ANALYST Visits 0 Physical Therapy Visit Comments Patient Comments agreeable to do PT; c/o increase hip pain Therapy Pain Assessment Pain When Pain Assessed At Rest Pain Present Pain Present Pain Reported Location Left hip Intensity 8 Scale Used Numeric (0 - 10) Pain Behaviors Crying,Guarding,Holding Area, Moaning Pain Management Techniques Apply Cold,Distraction, Modification of Treatment,Re- positioning,Timing of Activity with Medications M4 PT-IP Mobility and Gait Start: 02/17/21 12:09 Freq: NEEDED Status: Active Protocol: Document 02/17/21 10:10 AB (Rec: 02/17/21 12:24 [email or web address]) PT-Bed Mobility Assessment Supine to Sit Supine to Sit Maximum Assistance,1 Person Assistance PT-Transfer Assessment Sit to and From Stand Sit to and from Stand Minimal Assistance,1 Person Assistance,Use of Upper Extremities Equipment Transfer Assistive Device Gait Belt,Front Wheeled Walker Orthotic/Prosthetic Devices or Brace: No Transfers Transfer Destination Toilet Transfer Technique ambulated using FWW Transfer Ability Level of Assist Minimal Assistance,1 Person Assistance,Use of Upper Extremities Comments Mobility Comments educated pt regarding anterior hip precautions. pt requires cues to recall. completed supine to sit max A and max cues. completed log roll bed mobility. pt had back surgery last october. pt was able to sit on EOB CGA. completed sit to stand min A and ambulated using FWW towards the toilet min A and cues for precautions. pt maintained standing using FWW for support CGA while assisted with brief management. completed sit to stand from the toilet min A using grab bar. pt ambulated to the sink using FWW min A and was able to maintain standing CGA while handwashing . pt ambulated to the chair min A using FWW. agreed to stay up on the chair. positioned on the chair. call light and table placed within reach. caregiver training set up with pt's son today at 1 pm. Gait Assessment Gait Gait Assistance Required: Minimum Assistance Distance (Feet) 20 Able to Maintain Weight Bearing Status Yes During Gait Assistive Devices Assistive Device Gait Belt,Front Wheeled Walker Orthotic/Prosthetic Devices or Brace: No Gait Deviations General Gait Pattern Decreased Stride Length, Decreased Feet Clearance Factors Limiting Gait Function Factors Limiting Gait Function Decreased Activity Tolerance, Decreased Strength,Difficulty Following Directions,Limited Range of Motion,Pain,Poor Balance,Poor Safety Awareness PT-Balance Assessment Sitting Balance and Reactions Static Sitting Balance Ability Good Dynamic Sitting Balance Ability Good Standing Balance and Reactions Static Standing Balance Ability Fair Dynamic Standing Balance Ability Fair Device Used FWW M5 PT-IP Objective Assessments Start: 02/17/21 12:09 Freq: NEEDED Status: Active Protocol: Document 02/17/21 10:10 AB (Rec: 02/17/21 12:24 AB [email or web address]) Orientation Orientation/Cognition Level of Alertness Alert Orientation Name Language Function Ability No Deficits Noted Safety Awareness Decreased Safety Awareness Memory Description Short Term Impaired Gross Range of Motion Lower Extremity ROM Assessment Within Functional Limits Strength Lower Extremity Strength Assessment Left Impaired Hip 3-/5 Knee 3+/5 Sensation Assessment Sensation Gross Sensation WNL Muscle Tone Muscle Tone WNL Yes M6 PT-IP Treatment Start: 02/17/21 12:09 Freq: NEEDED Status: Active Protocol: Document 02/17/21 10:10 AB (Rec: 02/17/21 12:24 AB [email or web address]) Physical Therapy Treatment Exercises Exercises Heel Slides Education Education Provided Precautions,Weight Bearing Status,Post-Op Packet,Safety M7 PT-IP Assessment and Plan Start: 02/17/21 12:09 Freq: NEEDED Status: Active Protocol: Document 02/17/21 10:10 AB (Rec: 02/17/21 12:24 AB [email or web address]) PT Summary Assessment and Plan Potential Rehabilitation Potential Good Status of Condition at Evaluation Evolving Summary Impairments Pain,ROM,Strength,Balance, Coordination,Sensation,Tone, Cognition,Bed Mobility, Transfers,Gait,Activity Tolerance Assessment Summary pt requiring max A with bed mobility and min A using FWW for transfers and ambulation. requires cues to maintain hip precautions. pt c/o increase pain affecting mobility and safety awareness. caregiver training set up at 1 pm this afternoon with pt and pt's son . will continue to assess progress for safe d/c plan. pt stated that her son has set up HHPT for her. Goals Bed Mobility Goal Standby Assistance Transfer Goal Standby Assistance,Front Wheeled Walker Gait Goal Standby Assistance,Front Wheel Walker Gait Distance 100 Other Goals up/down 3 steps 1 rail SBA up/down 1 step using FWW SBA Days to Meet Goals 5 Frequency of Treatment Frequency Of Treatment Twice a Day Treatment Plan Physical Therapy Treatment Plan Bed Mobility Training,Transfer Training,Gait Training, Therapeutic Exercise,Balance Retraining,Post Op Education, Discharge Planning,Hot or Cold Pack,Neuromuscular Re-ed, Coordination Retraining,Manual Therapy Precautions Anterior Hip Precautions No Hip Extension,No Hip External Rotation Other Precautions LLE WBAT Recommendations To Nursing Amount of Assist Needed 1 Person Assist Discharge Recommendations PT Discharge Recommendations Home with 01/05 Assist Available,Home Health,Home vs SNF Transportation Needs at Discharge Private Vehicle,Wheelchair/ Cabulance
--- NOTE | 2021-02-17 11:03 | CM.DANOTE ---
DCP: Case received, EMR reviewed and met with patient. Introduced self and role. Was able to obtain information from patient regarding her baseline activity status prior to surgery, as well as her current living situation. Lorna was also present in the room and was able to obtain information from her assessment as well. DCP assessment completed with information currently available. Patient is a 70 year old female who admitted yesterday morning to the care of the orthopedic team. PCP: Dr. Kelly Payer: Medicare/[employer]. Patient came to the hospital for a surgical procedure. She had left anterior total hip arthroplasty. Patient has history of osteoarthritis. Met with patient in her room. She is alert and oriented, pleasant. She was teary at times. Lorna Hansen was in the room getting ready to work with her. Patient resides alone in [facility]. She has a son named Kobe, who is also in the [facility] area. Patient at baseline drives, but not recently. Stated, she can do her own showers, get out of bed, etc, but slowly. She has had chronic hip pain. She confirmed that her son will assist at home, and that she may be getting home health, but have not yet confirmed. P: DCP to continue to follow. Patient should be able to go home when she is stable and cleared by P.T. Teena Galloway RN/Clinical Psychologist
[2021-02-17 11:51] VITALS: BP 146/90; PULSE 101; RESP 16; TEMP 37.2; O2SAT 97
--- NOTE | 2021-02-17 11:54 | P.DS_ITS ---
History of Present Illness History of Present Illness Date Patient Seen: 02/17/21 Time Patient Seen: 11:54 Chief complaint: OPB Narrative: Refer to previous HPI. Discharge Providers Provider Discharge Date: 02/17/21 Primary care physician: URBAN Ponce Consults: 02/16/21 06:30 Consult to Anesthesiology Routine Comment: Consulting Provider: Anesthesiologist Reason for consultation: Regional block for post operative pain control 02/16/21 19:27 Consult to Discharge Planning Routine Comment: Consult to Physical Therapy Evaluate & Treat Comment: Physician Instructions: post op DERRELL protocol Consult to Respiratory Therapy Evaluate & Treat Comment: Physician Instructions: Evaluate and treat Discharge provider: Ranjit Sweet PA-C Summary Hospital Course Discharge Diagnosis: Left hip avascular necrosis with collapse Status post left total hip arthroplasty. Hospital Course: Patient was admitted the hospital following the above-listed procedure for the above-listed diagnosis. Following the procedure the patient has been convalescing appropriately in her pain has been managed with current pain control regimen. Throughout the course of the time the patient spent in the hospital she has denied fever, chills, nausea, chest pain, shortness of venkata ath, or urinary retention. Patient has worked successfully with physical therapy on ambulation with the assistance of a front wheeled walker. Aspirin 81 mg twice daily has been administered for DVT prophylaxis along with the assistance of SCDs. Status at Discharge Cognitive/behavioral status at discharge: oriented Functional status at discharge: uses cane/walker Overall status at discharge: patient is progressing back to baseline Exam Vital Signs (past 8 hours): - 02/17/21 04:01 02/17/21 06:57 02/17/21 10:01 Temperature 98.0 F 98.7 F Pulse Rate 89 103 H Respiratory Rate 18 16 Blood Pressure 150/85 H 140/89 Pulse Oximetry 98 99 103 H 02/17/21 11:51 Temperature 99.0 F Pulse Rate 101 H Respiratory Rate 16 Blood Pressure 146/90 H Pulse Oximetry 97 Oxygen Delivery Method Room Air Oxygen Flow Rate 0 Narrative Exam Narrative: Pleasant 70-year-old female postop day 1 status post left total hip arthroplasty. Patient is resting comfortably in bed, is in no acute distress, is alert and oriented x3. Skin is warm and dry, and the skin surrounding the incision site is free of erythema, warmth, induration, or discharge. Dressing over the incision is clean and dry, no strike through appreciated. Good sensation appreciated throughout the bilateral lower extremities to light touch. Hip flexion performed bilaterally, right greater than left. Calves are soft and nontender, negative Homans sign. Ankle eversion, inversion, dorsiflexion, plantar flexion performed bilaterally without difficulty or discomfort. Palpable pulses appreciated, capillary refill less than 2 seconds. No other signs of DVT appreciated. Const General: cooperative, healthy appearing and comfortable Resp Effort & Inspection: normal respiratory effort and able to speak in complete sentences Skin General: no rashes or lesions noted Objective Labs Result Diagrams: 02/17/21 06:30 Labs: Laboratory Results - last 24 hr 02/17/21 06:30 Hgb 10.1 L Hct 30.7 L PFSH Medical History Anxiety Arthritis Brain aneurysm (1990) Depression HTN (hypertension) Internal bleeding (~2011) Pre-diabetes (10/2020) Sciatica Tremor Surgical History History of lumbar spinal fusion (10/21/20) Hx of BSO (bilateral salpingo-oophorectomy) (01/2020) Hx of thyroidectomy Social History household members: none Smoking Status: Former smoker alcohol intake: current Discharge Assessment & Plan Assessment and Plan Assessment: Patient is doing well. Plan of Treatment: Patient is to remain in standard total hip replacement protocol, weight-bearing as tolerated with the assistance of a front wheel walker with anterior hip precautions. Outpatient physical therapy is to be continued following discharge from the hospital. Current pain management regimen is to be continued as it is adequately control the patient's pain level. Aspirin 81 mg to be continued for 6 weeks for DVT prophylaxis. First postoperative visit in the clinic is scheduled for 2 weeks following discharge from the hospital. Patient is to contact clinic with any concerns or questions. Any signs of increased redness, warmth, swelling, or discharge around the incision site should be reported to the clinic. Discharge Plan Discharge Plan Patient Disposition: Home Provider Discharge Comment: Patient cleared for discharge pending PT approval. Discharge orders & Medications Discharge Orders: Discharge (Order); Ordered 02/17/21 Ordered By: Ranjit Clapper Prescriptions: New acetaminophen 325 mg Tablet 650 mg PO TID Qty: 90 RF: 0 aspirin 81 mg Tablet,Delayed Release (Dr/Ec) 81 mg PO BID Qty: 90 RF: 0 ibuprofen 400 mg Tablet 400 mg PO Q4HR Qty: 90 RF: 0 oxycodone 5 mg Tablet 5 mg PO Q3HR PRN (Reason: Pain, Moderate (4-6)) Qty: 42 RF: 0 Continued venlafaxine 150 mg Capsule,Extended Release 24hr 150 mg PO DAILY RF: 0 chlorthalidone 25 mg Tablet 25 mg PO DAILY RF: 0 alprazolam 0.5 mg Tablet 0.25 - 0.5 mg PO DAILY PRN (Reason: Anxiety, sleep) RF: 0 tramadol 50 mg Tablet 50 mg PO QID RF: 0 acetaminophen 650 mg Tablet Extended Release 1,300 mg PO BID RF: 0 ibuprofen 400 mg Tablet 400 mg PO DAILY PRN (Reason: Pain) RF: 0 docusate sodium [DOK] 100 mg capsule 100 mg PO DAILY RF: 0 Follow up/Referrals: Katarzyna Kelly ARNP [Primary Care Provider] - Diet/Activity/Treatments Diet: Diet as Tolerated Activity: Patient is to remain in standard total hip replacement protocol. Patient is to be weight-bearing as tolerated with the assistance of a front wheel walker. Anterior hip precautions. Skin/Wound/Dressing Care Report to your healthcare provider any signs of infection, such as:: chills, fever, night sweats, increased pain, unusual drainage and unusual redness Dressing: Dressing over the incision is to remain intact, clean, and dry. Contact clinic if the dressing is to become damaged, saturated, or removed. Other wound treatment: Avoid placing topical ointments over the incision site. Visit Report/Discharge Packet Instructions: DI for Hip Replacement Stand Alone Forms: Surgery Discharge Discharge Data Primary Care Provider: Katarzyna Kelly Attending Provider: Chuyita Hernandez
--- NOTE | 2021-02-17 13:10 | PT.IPTN ---
Current Diagnoses Unilateral primary osteoarthritis, left hip (02/16/21) Surgery Performed Operation Date: 02/16/21 13:45 Actual Procedures p Total Hip Arthroplasty/Anterior Approach(Left) - Chuyita Hernandez MD Physical Therapy Treatment Note M2 PT-IP Current Condition Start: 02/17/21 12:09 Freq: NEEDED Status: Active Protocol: Document 02/17/21 10:10 AB (Rec: 02/17/21 12:24 AB [email or web address]) Physical Therapy Current Condition Current Condition Evaluation Date 02/17/21 Treatment Diagnosis s/p L DERRELL anterior approach; difficulty in walking Onset Date 02/16/21 Precautions Anterior Hip Precautions No Hip Extension,No Hip External Rotation Weight Bearing Status Weight Bearing Status Weight Bear as Tolerated Allowed Weight Bearing Amount (enter % LLE WBAT or #) (%) M3 PT-IP Subjective Start: 02/17/21 12:09 Freq: NEEDED Status: Active Protocol: Document 02/17/21 13:10 AB (Rec: 02/17/21 15:03 AB [email or web address]) Subjective Physical Therapy Visit Type Type Treatment Note Visit Start Time 13:10 Visit Stop Time 14:00 Total Visit Minutes 50 Number of SHANK BONER Visits 0 Physical Therapy Visit Comments Patient Comments pt is agreeable to do PT Therapy Pain Assessment Pain When Pain Assessed At Rest Pain Present Pain Present Pain Reported Location Left hip Intensity 6 Scale Used Numeric (0 - 10) Pain Management Techniques Distraction,Modification of Treatment,Re-positioning, Timing of Activity with Medications M4 PT-IP Mobility and Gait Start: 02/17/21 12:09 Freq: NEEDED Status: Active Protocol: Document 02/17/21 13:10 AB (Rec: 02/17/21 15:03 AB [email or web address]) PT-Bed Mobility Assessment Rolling Type of Rolling Log Rolling Level of Assist Minimal Assistance Supine to Sit Supine to Sit Minimal Assistance Sit to Supine Sit to Supine Minimal Assistance PT-Transfer Assessment Sit to and From Stand Sit to and from Stand Minimal Assistance,1 Person Assistance,Use of Upper Extremities Equipment Transfer Assistive Device Gait Belt,Front Wheeled Walker Orthotic/Prosthetic Devices or Brace: No Transfers Transfer Destination Bed,Chair Transfer Technique ambulated using FWW Transfer Ability Level of Assist Minimal Assistance,1 Person Assistance,Use of Upper Extremities Comments Mobility Comments pt sitting on chair. pt's son just came in for caregiver training. educated son on how to use safety belt and how to assist pt and also reviewed hip precautions. pt completed sit <> stand x 4 reps as pt tend to get anxious and was initially very unsteady during transition of hands from chair to FWW. educated pt on techniques again. Son assisted pt and cued pt for techniques. pt ambulated from chair to bed and completed log roll bed mobility. son was able to assist pt. pt ambulated out in the hallway using FWW with son assist pt and cueing. completed up/down steps with pt holding on to L rail with B hands and son assisting pt. pt also completed up/down platform step using FWW with son assisting. assisted pt back to room and ambulated from w/c to chair. positioned pt on chair. call light and table placed within reach. Son stated that pt's sister will be staying to assist pt as long as pt needs assistance and he will be able to teach pt's sister on how to assist pt. pt and son has no concerns and feels comfortable going home today. Gait Assessment Gait Gait Assistance Required: Minimum Assistance Distance (Feet) 100 Able to Maintain Weight Bearing Status Yes During Gait Assistive Devices Assistive Device Gait Belt,Front Wheeled Walker Orthotic/Prosthetic Devices or Brace: No Gait Deviations General Gait Pattern Decreased Stride Length, Decreased Feet Clearance Factors Limiting Gait Function Factors Limiting Gait Function Decreased Activity Tolerance, Decreased Strength,Difficulty Following Directions,Limited Range of Motion,Pain,Poor Balance,Poor Safety Awareness Stair Climbing Assessment Evaluation Level of Assist On Stairs Minimal Assistance Devices Stair Climbing Assistive Devices Front Wheel Walker,Left Railing Technique/Endurance Stair Climbing Direction Ascend and Descend Stair Climbing Technique Step to Step Number of Steps Climbed 3 Stair Climbing Set # Repetitions (reps) 1 M5 PT-IP Objective Assessments Start: 02/17/21 12:09 Freq: NEEDED Status: Active Protocol: Document 02/17/21 10:10 AB (Rec: 02/17/21 12:24 AB [email or web address]) Orientation Orientation/Cognition Level of Alertness Alert Orientation Name Language Function Ability No Deficits Noted Safety Awareness Decreased Safety Awareness Memory Description Short Term Impaired Gross Range of Motion Lower Extremity ROM Assessment Within Functional Limits Strength Lower Extremity Strength Assessment Left Impaired Hip 3-/5 Knee 3+/5 Sensation Assessment Sensation Gross Sensation WNL Muscle Tone Muscle Tone WNL Yes M6 PT-IP Treatment Start: 02/17/21 12:09 Freq: NEEDED Status: Active Protocol: Document 02/17/21 13:10 AB (Rec: 02/17/21 15:03 AB [email or web address]) Physical Therapy Treatment Education Education Provided Precautions,Safety M7 PT-IP Assessment and Plan Start: 02/17/21 12:09 Freq: NEEDED Status: Active Protocol: Document 02/17/21 13:10 AB (Rec: 02/17/21 15:03 AB [email or web address]) PT Summary Assessment and Plan Potential Rehabilitation Potential Good Summary Impairments Pain,ROM,Strength,Balance, Coordination,Sensation,Tone, Cognition,Bed Mobility, Transfers,Gait,Activity Tolerance Progress Towards Goals Slow Progress due to Pain,Slow Progress - Other Assessment Summary caregiver training completed and son was able to assist pt with mobility. pt may go home when stable. Goals Bed Mobility Goal Standby Assistance Transfer Goal Standby Assistance,Front Wheeled Walker Gait Goal Standby Assistance,Front Wheel Walker Gait Distance 100 Other Goals up/down 3 steps 1 rail SBA up/down 1 step using FWW SBA Days to Meet Goals 5 Frequency of Treatment Frequency Of Treatment Twice a Day Treatment Plan Physical Therapy Treatment Plan Bed Mobility Training,Transfer Training,Gait Training, Therapeutic Exercise,Balance Retraining,Post Op Education, Discharge Planning,Hot or Cold Pack,Neuromuscular Re-ed, Coordination Retraining,Manual Therapy Precautions Anterior Hip Precautions No Hip Extension,No Hip External Rotation Other Precautions LLE WBAT Recommendations To Nursing Amount of Assist Needed 1 Person Assist Discharge Recommendations PT Discharge Recommendations Home with 01/05 Assist Available,Home Health Transportation Needs at Discharge Private Vehicle
--- NOTE | 2021-02-17 15:00 | PC.NURSE ---
DI given to pt and son, discussed- f/u appts, diet, weight measures, worsening symptoms, reasons to seek medical attention, s/s of stroke. All questions answered. IV already removed. Pt belongings packed up by son. Paper prescriptions given to pt's son. Pt left via w/c to POV with son accompanied by TELEPHONE LINEWORKER.
== END 2021-02-17 15:03 | disposition home or self-care (01) ==
LOC: OR 11:56 → AC 11:57
PROVIDERS: PCP Nurse Practitioner Family; Referring Provider Orthopaedic Surgery; Visit Provider Orthopaedic Surgery
PROC: (CPT 27130; principal; 2021-02-16 13:45)
DX: M16.12 Unilateral primary osteoarthritis, left hip (principal); M87.052 Idiopathic aseptic necrosis of left femur
CPT/HCPCS: 27130; 36415; 73502; 76000; 85014; 85018; 97162; 97530; C1776; C9290; J0690; J1170; J2060; J2250; J2405; J2704; J2765; J3010; J3410

== ENCOUNTER → 2021-08-16 10:10 | Outpatient (CLI) | payer MEDICARE, OTHER, SELFPAY ==
[2021-02-16 20:30] VITALS: BMI 21.9
[2021-08-16 12:48] LABS: COVID19 -Nasal RAPID Negative (Negative)
== END ==
PROVIDERS: PCP Nurse Practitioner Family; Visit Provider Physician Assistant
DX: Z01.812 Encounter for preprocedural laboratory examination (principal); Z20.822 Contact with and (suspected) exposure to COVID-19
CPT/HCPCS: 87635; C9803

== ENCOUNTER 2021-08-18 06:03 | Inpatient (IN) | payer MEDICARE, OTHER, SELFPAY ==
[2021-02-16 20:30] VITALS: BMI 21.9
[2021-08-13 11:19] VITALS: BMI 21.9
[2021-08-18] VITALS (13 sets, daily range): BP systolic 134–163; BP diastolic 50–91; PULSE 18–93; RESP 9–19; TEMP 36.4–37.7; O2SAT 85–99; BMI 21.9
--- NOTE | 2021-08-18 | DI.RAD.S_ITS ---
PROCEDURE: XR PELVIS 1-2V INDICATIONS: ANTERIOR R HIP TECHNIQUE: Intra-operative view of the pelvis and hip acquired. COMPARISON: [facility], CT, CT ABDOMEN PELVIS WITHOUT CONTRAST, 04/30/2021, 15:43. FINDINGS: Bones: Intraoperative devices prior to placement of right arthroplasty prostheses are in expected positions. No fractures or suspicious bony lesions. Previously placed left-sided hip arthroplasty hardware can be seen. Soft tissues: Overlying surgical retractors are present, along with other intraoperative changes. IMPRESSION: Normal intraoperative examination. Dictated by: Jin Song M.D. on 08/18/2021 at 10:28 Approved by: Jin Song M.D. on 08/18/2021 at 10:29
--- NOTE | 2021-08-18 06:00 | DI.RAD.S_ITS ---
PROCEDURE: XR HIP W PEL IF DONE RT 2V INDICATIONS: postop prosthesis placement TECHNIQUE: 2 view(s) of the hip acquired. COMPARISON: None. FINDINGS: Bones: Patient is status post right hip arthroplasty, with hardware components in expected positions. The hip joint appears congruent. The visualized bony structures appear intact. Note is made of left hip arthroplasty. Soft tissues: Overlying postoperative changes are noted. No suspicious soft tissue densities. IMPRESSION: Right hip prosthesis in expected position and alignment. Dictated by: Irene Wesley M.D. on 08/18/2021 at 11:50 Approved by: Irene Wesley M.D. on 08/18/2021 at 11:51
[2021-08-18] MEDS: CELECOXIB 200 MG CAPSULE PO (06:42)
[2021-08-18] MEDS: ACETAMINOPHEN 325 MG TABLET 975 MG PO (06:42)
[2021-08-18] MEDS: VANCOMYCIN 1,000 MG/200 ML PIGGYBACK 200 MG IV (07:04)
[2021-08-18] MEDS: LACTATED RINGERS 1,000 ML 42 ML IV ×2 (07:04→10:24)
--- NOTE | 2021-08-18 07:43 | P.OP.PRE_ITS ---
Pre-operative Note COVID-19 COVID-19 status: Negative Interval Note History & Physical reviewed/Exam performed by Physician: Yes Changes to H&P: Yes H&P completed within 30 days and has changed as indicated here:: She fell and hunter s noted some increased left hip pain. She has contusion on her left hip. She is able to actively forward flex it. She has minimal pain with axial loading. She was using a walker just prior to her admission. I told her that we will get x-rays with fluoroscopy during surgery and of it should also be visible on her postoperative film. She clearly has a left hip contusion but her exam does not suggest fracture.
--- NOTE | 2021-08-18 07:46 | PM.OP.1 ---
Operative Date/Time/Diagnoses Date of procedure: 08/18/21 Time of procedure: 08:00 Pre-op diagnosis: right hip OA Post-op diagnosis: same Procedure & Clinicians Procedure: Right total hip arthroplasty anterior approach Same procedure as scheduled: Yes Indications: The patient has had progressively worsening right hip pain with radiographic changes consistent with arthritis. Non-operative management has failed and the patient has requested total hip replacement. The risks, benefits and alternatives to surgery were discussed with the patient prior to proceeding. Risks discussed included, but were not limited to, failure to relieve pain, leg length discrepancy, dislocation, stiffness, infection, nerve damage, deep venous thrombosis, pulmonary embolism, stroke, coma, heart attack, permanent paralysis and , as well as the potential need for eventual revision of the prosthetic. Surgeon: Chuyita Hernandez Pulmonary Disease Specialist: Pamela Clark Anesthesia Type: General and Spinal Operative Notes Findings: Severe right hip osteoarthritis with subluxation of the femur laterally, soft, adequate stability Closure Type: primary Specimen(s): none sent Prosthetic devices, grafts, tissues, transplants, or devices: Hernandez [employer] Nephew 52 mm R 3 cup, two 6.5 mm screws, size 6 high offset anthology stem, 36 by +0 Oxinium head, neutral poly liner Estimated Blood Loss (mL): 250 Blood products transfused: none Procedure in detail: The patient was brought to the operating room. Patient was carefully positioned in the supine position. Time-out was performed and antibiotics were given. Anesthesia was induced. She was positioned in the on the table in order to allow hyperextension of the hip. The right lower extremity was prepped and draped in a standard sterile fashion. An anterior right hip incision was made 1 fingerbreadth lateral to the anterior superior iliac spine and extended distally towards the greater trochanter. Dissection was carried out through skin and subcutaneous tissues. The skin and subcutaneous tissues were carefully injected with Lidocaine with epi. Superficial hemostasis was achieved. The fascia over the tensor fascia alton was defined and incised with a knife. Two Allis clamps were used to grasp the fascia. Tensor fascia alton was retracted laterally. A gelpi retractor was placed. Dissection was carried out down along the neck. The circumflex vessels were carefully identified and cauterized with the Aqua Mantis. There was good visualization of the femoral neck. A Cobra was placed superior to the neck and the gluteus fibers were carefully stripped from that superior aspect of the capsule. A 2nd retractor was placed along the inferior aspect of the neck. The rectus insertion along the capsule was partially released. A 3rd retractor that was then gently placed over the rim of the acetabulum under the rectus. Capsule was carefully incised and released from the intertrochanteric line circumferentially superior to the mid sagittal line and inferiorly to the mid sagittal line until the lesser trochanter was palpable. A tag stitch was placed both in the superior and inferior limb of the capsular insertion. Along the acetabulum capsule was also released up to the mid sagittal 12:00 position. A portion of the labrum was resected. A saw was used to perform an osteotomy at the level of the intertrochanteric line and the junction of the superior femoral neck leaving approximately 1 finger breath of residual inferior neck above the lesser trochanter. A 2nd cut was made along the femoral neck at the base of the head and a napkin ring of neck was removed. Corkscrew was placed in the femoral head and the head was removed without difficulty. Retractors were then repositioned around the acetabulum. Residual labrum was resected and additional osteophytes were removed. A reamer that was 4 mm below the templated size was placed by hand in the acetabulum and it was reamed to centralize the acetabulum. It was then reamed up to 2 under the templated size and fluoroscopy was brought in to confirm the position of the reaming and depth of reaming. I reamed 1 under the anticipated size and touched the rim with line to line reaming. A trial cup was placed and noted that it was appropriately sized and fluoroscopy confirmed position and depth. She had substantial lateral bony erosion in the elliptical acetabulum. Specifically reamed then position the cup in order to provide adequate bony coverage and stable acetabular position. The cup was further stabilized with 2 screws. The component was open and inserted without difficulty fluoroscopic imaging was used to confirm that the cup had been adequately seated and was well positioned. Neutral poly liner was placed. The cup was tested and noted to be stable. Attention was then directed to the femur. The femur was gently hyperextended additional capsular release was performed as needed in order to allow adequate visualization of the proximal femur with elevation of the femur. Patient was placed in a hyperextended slightly adducted position with maximum external rotation. Box osteotome was used to check for any residual neck as well as sclerotic bone along the trochanter. [place] pepper was placed in the femur. Additional broaching was performed. Canal finder was used to determine the alignment of the canal and position. Size 1 broach was placed. The canal was then appropriately broached up to the templated size as long as there was adequate stability of the broach and serial advancement of the broach without excessive impingement. Specific attention was directed at avoiding varus attempting to direct the distal aspect of the broach more anteriorly and avoiding excessive anteversion. Trial reduction showed acceptable range of motion, good stability, no posterior impingement, sikhism of leg length and appropriate lateral shuck. I also hyperflexed the hip and checked that there was no impingement anteriorly and there was good stability with flexion, adduction and internal rotation. Marcaine and Exparel were injected. The stem was placed without difficulty. Repeat trial reduction and x-ray showed acceptable overall position, length, and no evidence of the femoral fracture. Final head was placed. Wound was meticulously irrigated with normal saline. The hip was reduced and additional Exparel and Marcaine were injected. The capsule was closed with interrupted nonabsorbable sutures. The fascia of the tensor was closed with interrupted and running Vicryl. No drain was placed. Any tensor fascia alton muscle that appeared to be contused or injured which was a minimal amount was carefully resected. Capsule around the tensor was injected with Exparel and Marcaine. The skin was closed with barbed stitches for the subcutaneous tissue and skin. We also used surgical glue. The wound was dressed sterilely. Brief Betadine soak was also used and was meticulously irrigated with normal saline. Patient was transferred to recovery room in satisfactory condition. Complications: none Post-operative Condition: stable Disposition: Acute Care Plan for aftercare: The patient will be maintained on a standard total hip replacement protocol with weight bearing as tolerated and anterior hip precautions. The patient will receive Aspirin and sequential compression devices for DVT prophylaxis. The patient will be discharged home when safe for the home environment.
[2021-08-18] MEDS: CEFAZOLIN 1 GM VIAL 2 GM IV ×2 (08:03→17:49)
[2021-08-18] MEDS: TRANEXAMIC ACID 1,000 MG VIAL 1000 MG INJ ×2 (08:20→10:35)
--- NOTE | 2021-08-18 08:33 | SUR.OPER ---
Patient supine on padded Vinson table, one arm on padded arm board at <90, other arm padded and secured with tape across patient's chest, both legs secured in padded traction boots and positioned per surgeon, padded post at patient's groin, pressure points checked and padded. Bilateral feet wrapped with cast padding and coban then placed in padded traction boots.
[2021-08-18] MEDS: BUPIVACAINE 0.25% (PF) 60 ML, EPINEPHrine 0.3 MG INJ (08:40)
[2021-08-18] MEDS: BUPIVACAINE LIPOSOME 266 MG/20 ML VIAL INJ (08:43)
[2021-08-18] MEDS: HYDROMORPHONE 2 MG INJ IV (11:40)
[2021-08-18] MEDS: hydrOXYzine 50 MG/ML INJ 25 MG IM (11:42)
[2021-08-18] MEDS: OXYCODONE IR 5 MG TABLET PO ×2 (11:44→14:20)
[2021-08-18] MEDS: LACTATED RINGERS 1,000 ML 125 ML IV ×2 (13:42→21:43)
[2021-08-18] MEDS: ACETAMINOPHEN 325 MG TABLET 650 MG PO ×2 (14:20→20:48)
--- NOTE | 2021-08-18 14:20 | PT.IIE ---
Current Diagnoses Unilateral primary osteoarthritis, right hip (08/18/21) Surgery Performed Operation Date: 08/18/21 07:45 Actual Procedures p Total Hip Arthroplasty/Anterior Approach(Right) - Chuyita Hernandez MD Medical History (Last Reviewed 02/17/21 @ 11:56 by Ranjit Sweet PA-C) Anxiety Arthritis Brain aneurysm (1990) Depression HTN (hypertension) Internal bleeding (~2011) Pre-diabetes (10/2020) Sciatica Tremor Physical Therapy Inpatient Evaluation/Re-Eval M1 PT/OT-IP Prior Functional Status Start: 08/18/21 16:15 Freq: NEEDED Status: Active Protocol: Document 08/18/21 14:20 AB (Rec: 08/18/21 16:41 AB [id number]) Medical Review Prior Functional Status Medical History Reviewed Yes Communication able to make needs known but with confusion Mobility and Gait pt staed that she is modified independent with all mobilities and ambulation using SPC Prior Functional Level (Other details) pt stated that he has a fall the day before surgery because she missed that step down to her bedroom; pt with h/o L DERRELL anterior approach last 08/29 Social History Household Members children,none Living Arrangements House Number of Floors (Floors) One Floor Number of Stairs To Enter/Railing? 3 steps wide B rails and can only hold on to one rail at a time 1 step down to bedroom level Home Environment Standard Height Toilet,Walk in Shower Home Equipment Front Wheel Walker,Four Wheel Walker,Straight Cane,Raised Toilet Seat w/Armrests,Shower Seat with Backrest,Hand Held Shower Additional Social History Comment pt lives alone and stated that her son will assist her but is not sure if her son will be able to stay with her at home M2 PT-IP Current Condition Start: 08/18/21 16:15 Freq: NEEDED Status: Active Protocol: Document 08/18/21 14:20 AB (Rec: 08/18/21 16:41 AB [id number]) Physical Therapy Current Condition Current Condition Evaluation Date 08/18/21 Treatment Diagnosis s/p R DERRELL anterior approach; difficulty in walking Onset Date 08/18/21 M3 PT-IP Subjective Start: 08/18/21 16:15 Freq: NEEDED Status: Active Protocol: Document 08/18/21 14:20 AB (Rec: 08/18/21 16:41 AB [email or web address]) Subjective Physical Therapy Visit Type Type Initial Evaluation Visit Start Time 14:20 Visit Stop Time 15:08 Total Visit Minutes 48 Number of POKER MACHINE ATTENDANT Visits 0 Physical Therapy Visit Comments Patient Comments agreeable to do PT Therapy Pain Assessment Pain When Pain Assessed At Rest Pain Present Pain Present Pain Reported Location Right Hip Scale Used pain scale not stated Pain Management Techniques Apply Cold,Distraction, Modification of Treatment,Re- positioning,Timing of Activity with Medications M4 PT-IP Mobility and Gait Start: 08/18/21 16:15 Freq: NEEDED Status: Active Protocol: Document 08/18/21 14:20 AB (Rec: 08/18/21 16:41 AB [id number]) PT-Bed Mobility Assessment Supine to Sit Supine to Sit Minimal Assistance,Bedrails Sit to Supine Sit to Supine Minimal Assistance PT-Transfer Assessment Sit to and From Stand Sit to and from Stand Minimal Assistance,1 Person Assistance,Use of Upper Extremities Equipment Transfer Assistive Device Gait Belt,Front Wheeled Walker Orthotic/Prosthetic Devices or Brace: No Comments Mobility Comments reviewed hip precautions with pt. post-op folder provided. completed supine to sit min A and cues. pt was able to sit on EOB SBA. completed sit to stand min A and cues and ambulated in room 20 ft using FWW min A and cues for hip precautions. pt requested to go back to bed. completed sit to supine min A withe RLE elevation to bed. positioned pt on the bed. call light and table placed within reach. ice pack provided. Gait Assessment Gait Gait Assistance Required: Minimum Assistance Distance (Feet) 20 Able to Maintain Weight Bearing Status Yes During Gait Assistive Devices Assistive Device Gait Belt,Front Wheeled Walker Orthotic/Prosthetic Devices or Brace: No Gait Deviations General Gait Pattern Decreased Stride Length, Decreased Feet Clearance Factors Limiting Gait Function Factors Limiting Gait Function Decreased Activity Tolerance, Decreased Strength,Difficulty Following Directions,Limited Range of Motion,Pain,Poor Balance,Poor Safety Awareness PT-Balance Assessment Sitting Balance and Reactions Static Sitting Balance Ability Good Dynamic Sitting Balance Ability Good Standing Balance and Reactions Static Standing Balance Ability Fair Dynamic Standing Balance Ability Fair Device Used FWW M5 PT-IP Objective Assessments Start: 08/18/21 16:15 Freq: NEEDED Status: Active Protocol: Document 08/18/21 14:20 AB (Rec: 08/18/21 16:41 AB [id number]) Orientation Orientation/Cognition Level of Alertness Alert Orientation Name Language Function Ability No Deficits Noted Safety Awareness Decreased Safety Awareness Memory Description Short Term Impaired Comments with some confusion Gross Range of Motion Lower Extremity ROM Assessment Within Functional Limits Strength Comments Strength Comments LLE: 4-/5 RLE: hip: 3+/5 knee: 4-/5 Sensation Assessment Sensation Gross Sensation WNL Muscle Tone Muscle Tone WNL Yes M6 PT-IP Treatment Start: 08/18/21 16:15 Freq: NEEDED Status: Active Protocol: Document 08/18/21 14:20 AB (Rec: 08/18/21 16:41 AB [email or web address]) Physical Therapy Treatment Education Education Provided Precautions,Weight Bearing Status,Post-Op Packet,Safety M7 PT-IP Assessment and Plan Start: 08/18/21 16:15 Freq: NEEDED Status: Active Protocol: Document 08/18/21 14:20 AB (Rec: 08/18/21 16:41 [email or web address]) PT Summary Assessment and Plan Potential Rehabilitation Potential Good Status of Condition at Evaluation Stable Summary Impairments Pain,ROM,Strength,Balance, Coordination,Cognition,Bed Mobility,Transfers,Gait, Activity Tolerance Assessment Summary pt s/p R DERRELL anterior approach POD 0. pt with slight confusion and memory issues requiring cues for hip precautions. Pt requiring min A with mobility at this time. Pt stated that her son will be able to assist her but is not sure if he can stay with her. pt will also need HHPT. Goals Bed Mobility Goal Standby Assistance Transfer Goal Standby Assistance,Front Wheeled Walker Gait Goal Standby Assistance,Front Wheel Walker Gait Distance 200 Other Goals up/down 3 steps 1 rail SBA up/down platform step using FWW SBA Days to Meet Goals 5 Frequency of Treatment Frequency Of Treatment Twice a Day Treatment Plan Physical Therapy Treatment Plan Bed Mobility Training,Transfer Training,Gait Training, Therapeutic Exercise,Balance Retraining,Post Op Education, Discharge Planning,Hot or Cold Pack,Neuromuscular Re-ed, Coordination Retraining,Manual Therapy Precautions Anterior Hip Precautions No Hip Extension,No Hip External Rotation Weight Bearing Status Weight Bearing Status Weight Bear as Tolerated Allowed Weight Bearing Amount (enter % RLE WBAT or #) (%) Recommendations To Nursing Amount of Assist Needed 1 Person Assist Discharge Recommendations PT Discharge Recommendations Home with Assistance,Home Health Transportation Needs at Discharge Private Vehicle
[2021-08-18] MEDS: IBUPROFEN 400 MG TABLET PO ×2 (17:50→20:47)
[2021-08-18] MEDS: TRAMADOL 50 MG TABLET PO (17:51)
--- NOTE | 2021-08-18 18:50 | PC.NURSE ---
Pt arrived from PACU @ 1125 Alert/oriented. SpO2 97% RA Paulaell dsg to right hip CDI. IVF infusing as per MD orders. Med x 1 for discomfort w/good relief. Stable post op course. Call light w/in reach, bed alarm on for pt safety. Continue w/plan of care.
[2021-08-18] MEDS: diphenhydrAMINE 50 MG/ML VIAL IV (20:47)
[2021-08-18] MEDS: DOCUSATE 100 MG CAPSULE PO (20:48)
[2021-08-18] MEDS: ASPIRIN EC 81 MG TABLET PO (20:48)
[2021-08-19] MEDS: CEFAZOLIN 1 GM VIAL 2 GM IV (00:09)
[2021-08-19] MEDS: IBUPROFEN 400 MG TABLET PO ×7 (00:34→21:10)
[2021-08-19] MEDS: TRAMADOL 50 MG TABLET PO ×3 (00:56→16:27)
[2021-08-19] MEDS: OXYCODONE IR 5 MG TABLET PO ×3 (05:10→21:10)
[2021-08-19 06:31] VITALS: BP 141/74; PULSE 84; RESP 16; TEMP 37.4; O2SAT 96
[2021-08-19 06:52] LABS: Hematocrit 30.7 % (36-46); Hemoglobin 10.3 g/dL (12.0-16.0)
--- NOTE | 2021-08-19 07:49 | P.PN_ITS ---
Subjective Subjective Date Patient Seen: 08/19/21 Time Patient Seen: 07:49 Interval history: The patient is complaining of moderate right hip pain this morning. She is also complaining of left hip pain as she had a fall onto her left hip approximately 2 days ago. She has a history of a left total hip arthroplasty on that side. She denies any fevers, chills, night sweats. She is having some numbness in her right lower extremity which is new since surgery. No nausea or vomiting. Exam Vital Signs (past 8 hours): - 08/19/21 06:31 Temperature 99.3 F Pulse Rate 84 Respiratory Rate 16 Blood Pressure 141/74 H Pulse Oximetry 96 Oxygen Delivery Method Room Air Oxygen Flow Rate 0 Narrative Exam Narrative: Very pleasant 71-year-old female, resting comfortably in bed, no acute distress. Dressing is clean, dry, intact. Bilateral lower extremity motor function is grossly intact. She has slightly decreased sensation on her right foot as compared to her left foot. Bilateral calves are soft, nontender palpation. Objective Labs Result Diagrams: 08/19/21 06:30 Labs: Laboratory Results - last 24 hr 08/19/21 06:30 Hgb 10.3 L Hct 30.7 L PFSH Medical History Anxiety Arthritis Brain aneurysm (1990) Depression HTN (hypertension) Internal bleeding (~2011) Pre-diabetes (10/2020) Sciatica Tremor Surgical History History of lumbar spinal fusion (10/21/20) Hx of BSO (bilateral salpingo-oophorectomy) (01/2020) Hx of thyroidectomy Social History household members: children and none Smoking Status: Former smoker alcohol intake: current Assessment & Plan Post-op Postoperative Procedures: Procedures Operation Date: 08/18/21 07:45 Actual Procedure Side Surgeon p Total Hip Arthroplasty/Anterior Approach Right Chuyita Hernandez MD Postoperative day: 1 Postoperative status narrative: -Stable status post right total hip arthroplasty -left hip contusion, due to fall prior to surgery Postoperative plan narrative: -mobilize with PT. Maintain anterior hip precautions. Weight-bearing as tolerated with front wheel walker -continue with current pain regimen and DVT prophylaxis -likely discharge home tomorrow, she is a and lives alone. Her son and his girlfriend, who were planning to be her caregivers, are currently very ill- likely with COVID, and she is not sure who will be able to take care of her at home.
--- NOTE | 2021-08-19 08:02 | PC.NURSE ---
Addendum entered by Alina Hartman R.N. 08/19/21 17:45: Pt ambulated in hallway w/PT & did well Med at 1700 w/tramadol w/good relief. Relatively uneventful day. Call light w/in reach, bed alarm on for pt safety. Continue w/plan of care. Original Note: Pt awake, states she is feeling good SpO2 98 RA Dsg to right hip CDI HL left wrist intact/patent. Call light w/in reach, bed alarm on for pt safety.
[2021-08-19] MEDS: ACETAMINOPHEN 325 MG TABLET 650 MG PO ×3 (08:13→21:08)
[2021-08-19] MEDS: DOCUSATE 100 MG CAPSULE PO ×2 (08:14→21:10)
[2021-08-19] MEDS: VENLAFAXINE ER 75 MG CAP 150 MG PO (08:14)
[2021-08-19] MEDS: CHLORTHALIDONE 25 MG TABLET PO (08:14)
[2021-08-19] MEDS: ASPIRIN EC 81 MG TABLET PO ×2 (08:14→21:09)
--- NOTE | 2021-08-19 09:22 | CM.DANOTE ---
Addendum entered by Teena Galloway R.N. 08/19/21 12:51: Brought in a Medicare Choice list for patient. She stated, I really want to go home, my friend, Samy, said she can stay with me. Her friend is supposed to come to the hospital tomorrow for caregiver training, but she will need to be tested for COVID first. Patient is in agreement that she will go to [facility] as back up if necessary. Originally, her son was supposed to assist patient, but he is now positive for COVID and in quaranteen. She will continue to work with P.T. [facility] does have the referral. Original Note: Case received, EMR reviewed and met with patient. Introduced self and role. Was able to obtain information regarding patient's baseline activity level prior to her surgery, as well as her current living situation. DCP assessment completed with information currently available. Patient is a 71 year old female who admitted yesterday morning to the care of the orthopedic team. PCP: Dr. Kelly. Payer: confirmed: Medicare/[employer]. Patient came to the hospital via private vehicle for a surgical procedure. She had right total hip arthroplasty. Patient has history of osteoarthritis of her right hip. Met with patient in her room. She is pleasant, alert and oriented. She was sitting up in bed having her breakfast. Confirmed with patient that she resides alone, she is a as of 4 years. She indicated that she has a son that lives near her, but not feeling well, and was planning on having him help her at home if needed. She also indicated that she has a friend that may be able to assist her. [facility] was pre-ordered for patient by the orthopedic office. Patient indicated, she has has several surgeries before, and knows what to expect. She has a cane for home use. P: DCP to continue to follow. Will see how she does with P.T. today. Plan is home with [facility]. Teena Galloway RN/Carbonizer Tester Discharge Planning/Care Management CM Discharge Assessment Start: 08/19/21 09:19 Freq: Status: Active Protocol: Document 08/19/21 09:19 (Rec: 08/19/21 09:22 [id number]) Discharge Planning Assessment Assigned Drop Board Worker Teena Nilesh, RN/Carbonizer Tester Advance Directives? No History Provided By Patient,Medical Record Prior Living Arrangements House Household Members none Type of transporation used prior to Drives own vehicle admit Independent with ADL's Yes Is patient alert and oriented? Yes Caregiver for Another No DME Already Rented / Owned Cane Barriers to Discharge No Comment Patient indicated that her son will be assisting her. Discharge Plan Home with Home Health Transportation Arrangement Family Referrals Initiated Home Health Additional Comment [facility] has already been set up with the orthopedic office. Whiteboard Updated in Patient Room with Yes name and ext. # of Drop Board Worker Review Status In Process Next Review Type Continued Stay Review Pre-Anesthesia Assessment Start: 08/13/21 11:19 Freq: Status: Complete Protocol: Document 08/13/21 11:19 [facility] (Rec: 08/13/21 11:27 [facility] [id number]) Pre-Anesthesia Assessment PAC Comment Pt is s/p LT DERRELL 02/16/21. She declined PAC phone assess for upcoming surgery. She states no changes to medical/ medication history, no questions or concerns, chart review only Preferred Name Sherly Patient Information Reviewed Via Chart Review Comment COVID screen @ 08/16/21 Primary Care Provider Katarzyna Kelly Seen Specialist in Last 12 Months Yes Specialist Seen Oncologist,Orthopedist Primary Language [place] Preferred Language [place] Degreaser Operator Required No Height 5 ft 3 in Weight 123 lb 15.984 oz Body Mass Index (BMI) 21.9 Hearing Ability Normal Visual Assist Glasses Dentition Type Partial- Upper Barriers to Learning None Hx Anesthesia Reactions No Hx Family Anesthesia Reaction No Hx Malignant Hyperthermia No Hx Blood Transfusions Yes: Internal bleeding r/t fibroid '12 Hx Blood Transfusion Reaction No Anesthesia Review Requested No Court Security Officer No alcohol intake current alcohol intake frequency holidays/special occasions only Smoking Status Former smoker Tobacco type cigarettes how long ago did patient quit smoking 2000 Substance Use Type marijuana Pain Present Pain Reported Musculoskeletal Symptoms Abnormal Gait,Back Pain, Difficulty Walking,Joint Pain, Myalgias,Radiating Pain into Limb,Tremors History of Falling (Recent or History of No ) Patient is completely paralyzed or No completely immobile Prosthesis or Orthotic Device Cane,Front Wheel Walker Mental Status Oriented to own ability Is patient on oxygen? No Does patient have KAT/SOB No Hx Sleep Apnea No CPAP/BIPAP use not prescribed Currently Taking a Beta Kimberly No Can You Climb a Flight of Stairs Without No SOB Hx Chest Pain No Hx SOB No Hx Syncope or Dizziness No Anti-Coagulant Therapy No Has a Supervisor Wrapping Room No Cardiac Testing No Hx Pacemaker/ICD No Pacemaker Rep Required? No Cardiac Clearance Received Not Applicable Diet Type At Home Regular dysphagia No Gastrointestinal Symptoms Constipation Bladder Pattern Incontinent,Nocturia Urinary Catheter Present No Hx Urinary Self Catheterization No Diabetes No: Pre-diabetes Patient No Lactating No Hx Drug Resistant Organism No Presence of External or Internal Medical Yes: needle (abt 1/8 long) in Devices R 1st finger, left hip, spinal hardware Marital Status / Lives With none Prior Living Arrangements House Number of Floors (Floors) One Floor Support System Friend(s),Sibling(s) Patient Discharge Plan Description Return Home Feels Safe in Current Environment Yes Been Physically Hurt or Threatened By a No Person in Current Environment Do you have thoughts of harming yourself None or others? Are you currently considering suicide? No Do you have a plan to hurt yourself or No Plan others? Do You Have Any Spiritual Beliefs That No May Affect Your HC Choices? Do You Have Any Cultural Practices That No May Affect Your HC Choices? Comment Hoahaoism Who Can We Speak to About Patient's Care Family, friends Identifying Code for Release of Patient Declines to issue Information Health Care Proxy/Next of Kin Shaw (son) Health Care Proxy Emergency Contact Name Ana (caregiver) Shaw (son) Emergency Contact Phone Number Ana: [phone] Shaw: Advance Directives? No
[2021-08-19 10:10] VITALS: BP 136/76; PULSE 87; RESP 20; TEMP 37.6; O2SAT 98
--- NOTE | 2021-08-19 10:28 | PT.IPTN ---
Current Diagnoses Unilateral primary osteoarthritis, right hip (08/18/21) Surgery Performed Operation Date: 08/18/21 07:45 Actual Procedures p Total Hip Arthroplasty/Anterior Approach(Right) - Chuyita Hernandez MD Physical Therapy Treatment Note M2 PT-IP Current Condition Start: 08/18/21 16:15 Freq: NEEDED Status: Active Protocol: Document 08/18/21 14:20 AB (Rec: 08/18/21 16:41 AB [id number]) Physical Therapy Current Condition Current Condition Evaluation Date 08/18/21 Treatment Diagnosis s/p R DERRELL anterior approach; difficulty in walking Onset Date 08/18/21 M3 PT-IP Subjective Start: 08/18/21 16:15 Freq: NEEDED Status: Active Protocol: Document 08/19/21 09:59 KS (Rec: 08/19/21 12:33 KS [id number]) Subjective Physical Therapy Visit Type Type Treatment Note Visit Start Time 09:59 Visit Stop Time 10:28 Total Visit Minutes 29 Number of BLOW DOWN OPERATOR Visits 1 Physical Therapy Visit Comments Patient Comments agreeable to do PT Therapy Pain Assessment Pain When Pain Assessed During Mobility Pain Present Pain Present Pain Reported Location Right Hip Intensity 7 Scale Used Numeric (0 - 10) Description Sharp,Stabbing Pain Management Techniques Distraction,Re-positioning, Timing of Activity with Medications M4 PT-IP Mobility and Gait Start: 08/18/21 16:15 Freq: NEEDED Status: Active Protocol: Document 08/19/21 09:59 KS (Rec: 08/19/21 12:33 KS [id number]) PT-Bed Mobility Assessment Supine to Sit Supine to Sit Contact Guard Assistance, Bedrails Sit to Supine Sit to Supine Contact Guard Assistance Scooting Scooting to Edge of Bed Contact Guard Assistance Scooting Up and Down in Bed Contact Guard Assistance PT-Transfer Assessment Sit to and From Stand Sit to and from Stand Contact Guard Assistance,1 Person Assistance,Use of Upper Extremities Equipment Transfer Assistive Device Gait Belt,Front Wheeled Walker Orthotic/Prosthetic Devices or Brace: No Transfers Transfer Destination Bed Transfer Technique Pt ambulated w/ FWW Transfer Ability Level of Assist Contact Guard Assistance,1 Person Assistance,Use of Upper Extremities Comments Mobility Comments Pt in bed upon arrival from therapy and reporting 7/10 pain in hip at rest and w/ mobility. Able to recall hip precautions. Instructed pt how to use gaitbelt for self assist of RLE out of bed, pt sup<>sit and scooted EOB CGA. Pt sit<>stand w/ FWW CGA and ambulated ~100 ft w/ FWW CGA. Pt demonstrated good use of FWW, with occasional cues to look forward during ambulation . Pt returned to room and used toilet CGA and returned to bed CGA. Pt left in bed with all needs in reach requested no SCDs at this time, encouraged pt to perform ankle pumps in bed. Gait Assessment Gait Gait Assistance Required: Contact Guard Assist Distance (Feet) 100 Able to Maintain Weight Bearing Status Yes During Gait Assistive Devices Assistive Device Gait Belt,Front Wheeled Walker Orthotic/Prosthetic Devices or Brace: No Gait Deviations General Gait Pattern Decreased Stride Length, Decreased Feet Clearance Factors Limiting Gait Function Factors Limiting Gait Function Decreased Activity Tolerance, Decreased Strength,Difficulty Following Directions,Limited Range of Motion,Pain,Poor Balance,Poor Safety Awareness Comments Gait Comments Please refer to mobility section for details. Stair Climbing Assessment Comments Stair Climbing Comments Not assessed, pt will need to complete 3 steps prior to d/c. PT-Balance Assessment Sitting Balance and Reactions Static Sitting Balance Ability Good Dynamic Sitting Balance Ability Good Standing Balance and Reactions Static Standing Balance Ability Good Dynamic Standing Balance Ability Fair Device Used FWW M5 PT-IP Objective Assessments Start: 08/18/21 16:15 Freq: NEEDED Status: Active Protocol: Document 08/18/21 14:20 AB (Rec: 08/18/21 16:41 AB [id number]) Orientation Orientation/Cognition Level of Alertness Alert Orientation Name Language Function Ability No Deficits Noted Safety Awareness Decreased Safety Awareness Memory Description Short Term Impaired Comments with some confusion Gross Range of Motion Lower Extremity ROM Assessment Within Functional Limits Strength Comments Strength Comments LLE: 4-/5 RLE: hip: 3+/5 knee: 4-/5 Sensation Assessment Sensation Gross Sensation WNL Muscle Tone Muscle Tone WNL Yes M6 PT-IP Treatment Start: 08/18/21 16:15 Freq: NEEDED Status: Active Protocol: Document 08/19/21 09:59 KS (Rec: 08/19/21 12:33 KS [id number]) Physical Therapy Treatment Exercises Exercises Ankle Pumps Education Education Provided Precautions,Weight Bearing Status,Safety M7 PT-IP Assessment and Plan Start: 08/18/21 16:15 Freq: NEEDED Status: Active Protocol: Document 08/19/21 09:59 KS (Rec: 08/19/21 12:33 KS [id number]) PT Summary Assessment and Plan Potential Rehabilitation Potential Good Status of Condition at Evaluation Stable Summary Impairments Pain,ROM,Strength,Balance, Coordination,Cognition,Bed Mobility,Transfers,Gait, Activity Tolerance Progress Towards Goals Slow Progress due to Pain Assessment Summary Pt requiring CGA and cues for bed mobility, transfers and ambulation w/ FWW. Pt continues to have some memory issues, frst stating there are no stairs in home but then stating 2 or 3. Pt able to tolerate ~100 ft ambulation w/ FWW and recalled precautions. Pt stated her son may not be able to help her because he may have covid, but if going home pt will need assistance for safety. Goals Bed Mobility Goal Standby Assistance Transfer Goal Standby Assistance,Front Wheeled Walker Gait Goal Standby Assistance,Front Wheel Walker Gait Distance 200 Other Goals up/down 3 steps 1 rail SBA up/down platform step using FWW SBA Days to Meet Goals 5 Frequency of Treatment Frequency Of Treatment Twice a Day Treatment Plan Physical Therapy Treatment Plan Bed Mobility Training,Transfer Training,Gait Training, Therapeutic Exercise,Balance Retraining,Post Op Education, Discharge Planning,Hot or Cold Pack,Neuromuscular Re-ed, Coordination Retraining,Manual Therapy Precautions Anterior Hip Precautions No Hip Extension,No Hip External Rotation Weight Bearing Status Weight Bearing Status Weight Bear as Tolerated Allowed Weight Bearing Amount (enter % RLE WBAT or #) (%) Recommendations To Nursing Amount of Assist Needed 1 Person Assist Discharge Recommendations PT Discharge Recommendations Home with Assistance,Home Health Transportation Needs at Discharge Private Vehicle
--- NOTE | 2021-08-19 14:31 | PT.IPTN ---
Current Diagnoses Unilateral primary osteoarthritis, right hip (08/18/21) Surgery Performed Operation Date: 08/18/21 07:45 Actual Procedures p Total Hip Arthroplasty/Anterior Approach(Right) - Chuyita Hernandez MD Physical Therapy Treatment Note M2 PT-IP Current Condition Start: 08/18/21 16:15 Freq: NEEDED Status: Active Protocol: Document 08/18/21 14:20 AB (Rec: 08/18/21 16:41 AB [id number]) Physical Therapy Current Condition Current Condition Evaluation Date 08/18/21 Treatment Diagnosis s/p R DERRELL anterior approach; difficulty in walking Onset Date 08/18/21 M3 PT-IP Subjective Start: 08/18/21 16:15 Freq: NEEDED Status: Active Protocol: Document 08/19/21 14:08 KS (Rec: 08/19/21 15:20 KS [id number]) Subjective Physical Therapy Visit Type Type Treatment Note Visit Start Time 14:08 Visit Stop Time 14:31 Total Visit Minutes 23 Number of [employer]CIAL [employer] ASSOCIATE Visits 2 Physical Therapy Visit Comments Patient Comments agreeable to do PT Therapy Pain Assessment Pain When Pain Assessed During Mobility Pain Present Pain Present Pain Reported M4 PT-IP Mobility and Gait Start: 08/18/21 16:15 Freq: NEEDED Status: Active Protocol: Document 08/19/21 14:08 KS (Rec: 08/19/21 15:20 KS [id number]) PT-Bed Mobility Assessment Supine to Sit Supine to Sit Contact Guard Assistance, Bedrails Sit to Supine Sit to Supine Contact Guard Assistance Scooting Scooting to Edge of Bed Contact Guard Assistance Scooting Up and Down in Bed Contact Guard Assistance PT-Transfer Assessment Sit to and From Stand Sit to and from Stand Contact Guard Assistance,1 Person Assistance,Use of Upper Extremities Equipment Transfer Assistive Device Gait Belt,Front Wheeled Walker Orthotic/Prosthetic Devices or Brace: No Transfers Transfer Destination Bed Transfer Technique Pt ambulated w/ FWW Transfer Ability Level of Assist Contact Guard Assistance,1 Person Assistance,Use of Upper Extremities Comments Mobility Comments Pt in bed upon arrival from therapy. CGA for sup<>sit and scooting EOB w/ use of gaitbelt to self assist RLE. Pt sit<>stand CGA w/ FWW. She then ambulated ~[address] w/ FWW CGA and cues for looking forward. Pt returned to room and bed, reveiwed precautions and LE exercises to promote blood flow and strengthening. Gait Assessment Gait Gait Assistance Required: Contact Guard Assist Distance (Feet) 100 Able to Maintain Weight Bearing Status Yes During Gait Assistive Devices Assistive Device Gait Belt,Front Wheeled Walker Orthotic/Prosthetic Devices or Brace: No Gait Deviations General Gait Pattern Decreased Stride Length, Decreased Feet Clearance Factors Limiting Gait Function Factors Limiting Gait Function Decreased Activity Tolerance, Decreased Strength,Difficulty Following Directions,Limited Range of Motion,Pain,Poor Balance,Poor Safety Awareness Comments Gait Comments Please refer to mobility section for details. Stair Climbing Assessment Comments Stair Climbing Comments Not assessed, pt will need to complete 3 steps prior to d/c. PT-Balance Assessment Sitting Balance and Reactions Static Sitting Balance Ability Good Dynamic Sitting Balance Ability Good Standing Balance and Reactions Static Standing Balance Ability Good Dynamic Standing Balance Ability Fair Device Used FWW M5 PT-IP Objective Assessments Start: 08/18/21 16:15 Freq: NEEDED Status: Active Protocol: Document 08/18/21 14:20 AB (Rec: 08/18/21 16:41 AB [id number]) Orientation Orientation/Cognition Level of Alertness Alert Orientation Name Language Function Ability No Deficits Noted Safety Awareness Decreased Safety Awareness Memory Description Short Term Impaired Comments with some confusion Gross Range of Motion Lower Extremity ROM Assessment Within Functional Limits Strength Comments Strength Comments LLE: 4-/5 RLE: hip: 3+/5 knee: 4-/5 Sensation Assessment Sensation Gross Sensation WNL Muscle Tone Muscle Tone WNL Yes M6 PT-IP Treatment Start: 08/18/21 16:15 Freq: NEEDED Status: Active Protocol: Document 08/19/21 14:08 KS (Rec: 08/19/21 15:20 KS [id number]) Physical Therapy Treatment Exercises Exercises Ankle Pumps,Gluteal Sets,Quad Sets,Heel Slides Education Education Provided Precautions,Weight Bearing Status,Safety M7 PT-IP Assessment and Plan Start: 08/18/21 16:15 Freq: NEEDED Status: Active Protocol: Document 08/19/21 14:08 KS (Rec: 08/19/21 15:20 KS [id number]) PT Summary Assessment and Plan Potential Rehabilitation Potential Good Status of Condition at Evaluation Stable Summary Impairments Pain,ROM,Strength,Balance, Coordination,Cognition,Bed Mobility,Transfers,Gait, Activity Tolerance Progress Towards Goals Slow Progress due to Pain Assessment Summary Pt requiring CGA and cues for bed mobility, transfers and ambulation w/ FWW. Able to recall hip precautions. Pt tolerated ~100 ft ambulation w / FWW . Pt will need to complete caregiver and stair training prior to d/c, but should be able to d/c home if she is able to have someone assist her. Goals Bed Mobility Goal Standby Assistance Transfer Goal Standby Assistance,Front Wheeled Walker Gait Goal Standby Assistance,Front Wheel Walker Gait Distance 200 Other Goals up/down 3 steps 1 rail SBA up/down platform step using FWW SBA Days to Meet Goals 5 Frequency of Treatment Frequency Of Treatment Twice a Day Treatment Plan Physical Therapy Treatment Plan Bed Mobility Training,Transfer Training,Gait Training, Therapeutic Exercise,Balance Retraining,Post Op Education, Discharge Planning,Hot or Cold Pack,Neuromuscular Re-ed, Coordination Retraining,Manual Therapy Precautions Anterior Hip Precautions No Hip Extension,No Hip External Rotation Weight Bearing Status Weight Bearing Status Weight Bear as Tolerated Allowed Weight Bearing Amount (enter % RLE WBAT or #) (%) Recommendations To Nursing Amount of Assist Needed 1 Person Assist Discharge Recommendations PT Discharge Recommendations Home with Assistance,Home Health Transportation Needs at Discharge Private Vehicle
[2021-08-19 20:00] VITALS: BP 132/67; PULSE 91; RESP 18; TEMP 36.9; O2SAT 97
[2021-08-19] MEDS: ALPRAZolam 0.5 MG TABLET PO (21:10)
[2021-08-20 04:00] VITALS: BP 169/73; PULSE 90; RESP 20; TEMP 37.1; O2SAT 98
[2021-08-20] MEDS: IBUPROFEN 400 MG TABLET PO ×3 (05:56→12:15)
--- NOTE | 2021-08-20 07:51 | P.DS_ITS ---
History of Present Illness History of Present Illness Date Patient Seen: 08/20/21 Time Patient Seen: 07:51 Chief complaint: right hip pain s/p right DERRELL Narrative: the patient is complaining of moderate right hip pain this morning. She notes that tramadol makes her feel weird and itchy. She would like to discontinue the tramadol and use oxy along with Tylenol and ibuprofen. Denies any new numbness or tingling. No fevers, chills, night sweats. She is manny rned about her caregivers at home as her son just tested positive for COVID. Her friend is getting tested for for COVID and she would like to be tested today as well, which I think is reasonable. Discharge Providers Provider Date of admission: 08/18/21 06:03 Discharge Date: 08/20/21 Primary care physician: URBAN Ponce Consults: 08/18/21 06:00 Consult to Anesthesiology Routine Comment: Consulting Provider: Anesthesiologist Reason for consultation: Regional block for post operative pain control 08/18/21 13:05 Consult to Discharge Planning Routine Comment: Consult to Physical Therapy Evaluate & Treat Comment: Physician Instructions: post op DERRELL protocol Consult to Respiratory Therapy Evaluate & Treat Comment: Physician Instructions: Evaluate and treat Discharge provider: Pamela Clark PA-C Summary Hospital Course Discharge Diagnosis: Right hip osteoarthritis Hospital Course: Date of procedure: 08/18/21 Time of procedure: 08:00 Procedure & Clinicians Procedure: Right total hip arthroplasty anterior approach Same procedure as scheduled: Yes Indications: The patient has had progressively worsening right hip pain with radiographic changes consistent with arthritis. Non-operative management has failed and the patient has requested total hip replacement. The risks, benefits and alternatives to surgery were discussed with the patient prior to proceeding. Risks discussed included, but were not limited to, failure to relieve pain, leg length discrepancy, dislocation, stiffness, infection, nerve damage, deep venous thrombosis, pulmonary embolism, stroke, coma, heart attack, permanent paralysis and , as well as the potential need for eventual revision of the prosthetic. Surgeon: Chuyita Hernandez House Painting Instructor: Pamela Clark Anesthesia Type: General and Spinal Operative Notes Findings: Severe right hip osteoarthritis with subluxation of the femur laterally, soft, adequate stability Closure Type: primary Specimen(s): none sent Prosthetic devices, grafts, tissues, transplants, or devices: Hernandez [employer]hew 52 mm R 3 cup, two 6.5 mm screws, size 6 high offset anthology stem, 36 by +0 Oxinium head, neutral poly liner Estimated Blood Loss (mL): 250 Blood products transfused: none Status at Discharge Cognitive/behavioral status at discharge: oriented Functional status at discharge: uses cane/walker Overall status at discharge: patient is progressing back to baseline Exam Vital Signs (past 8 hours): - 08/20/21 04:00 Temperature 98.7 F Pulse Rate 90 Respiratory Rate 20 Blood Pressure 169/73 H Pulse Oximetry 98 Oxygen Delivery Method Room Air Oxygen Flow Rate 0 Narrative Exam Narrative: pleasant 71-year-old female, resting comfortably in bed, no acute distress. Dressing is clean, dry, intact. Left hip demonstrates ecchymosis over the lateral aspect. Bilateral lower extremity motor functions grossly intact. Sensation is grossly intact to light touch in bilateral lower extremities. Calves are soft, nontender to palpation. Objective Labs Result Diagrams: 08/19/21 06:30 [facility], [facility] Medical History Anxiety Arthritis Brain aneurysm (1990) Depression HTN (hypertension) Internal bleeding (~2011) Pre-diabetes (10/2020) Sciatica Tremor Surgical History History of lumbar spinal fusion (10/21/20) Hx of BSO (bilateral salpingo-oophorectomy) (01/2020) Hx of thyroidectomy Social History household members: none Smoking Status: Former smoker alcohol intake: current Discharge Assessment & Plan Assessment and Plan Assessment: Stable status post right total hip arthroplasty, anterior approach -left hip contusion due to fall prior to right hip surgery. History of left DERRELL Plan of Treatment: -mobilize with PT. Maintain anterior hip precautions x6 weeks. Weightbearing as tolerated with front wheel walker - we will discontinue tramadol otherwise continue current pain regimen and DVT prophylaxis -DC home today when cleared by PT, negative COVID test Discharge Plan Discharge Plan Patient Disposition: Home Discharge orders & Medications Prescriptions: New aspirin 81 mg Tablet,Delayed Release (Dr/Ec) 81 mg PO BID 42 Days Qty: 84 RF: 0 docusate sodium 100 mg Capsule 100 mg PO BID PRN (Reason: constipation from narcotic pain meds) Qty: 30 RF: 0 ibuprofen 400 mg Tablet 400 mg PO Q4HR MDD max 2400 mg per day PRN (Reason: pain/inflammation) Qty: 90 RF: 0 oxycodone 5 mg Tablet 5 mg PO Q3HR PRN (Reason: Pain, Moderate (4-6)) Qty: 42 RF: 0 Continued venlafaxine 150 mg Capsule,Extended Release 24hr 150 mg PO DAILY RF: 0 chlorthalidone 25 mg Tablet 25 mg PO DAILY RF: 0 alprazolam 0.5 mg Tablet 0.25 - 0.5 mg PO DAILY PRN (Reason: Anxiety, sleep) RF: 0 docusate sodium [DOK] 100 mg capsule 100 mg PO DAILY RF: 0 acetaminophen 325 mg Tablet 650 mg PO TID Qty: 90 RF: 0 Changed acetaminophen 650 mg Tablet Extended Release 650 mg PO Q8H PRN (Reason: fever or pain) Qty: 90 RF: 0 Discontinued tramadol 50 mg Tablet 50 mg PO QID RF: 0 ibuprofen 400 mg Tablet 400 mg PO Q4HR Qty: 90 RF: 0 Follow up/Referrals: Katarzyna Kelly ARNP [Primary Care Provider] - Chuyita Hernandez MD [Physician] - ( 10-14 days for postoperative visit) Diet/Activity/Treatments Diet: Diet as Tolerated and Regular Other treatments: Medications: -Aspirin 81mg twice daily x6 weeks to prevent blood clots. -Tylenol 650 mg 1 tablet every 8 hours as needed for pain/fever. -Ibuprofen 400 mg 1 tablet every 4 hours as needed for pain/inflammation. Max 2,400 mg per day. -Oxycodone 5 mg take 1-2 tablets every 4 hours as needed for moderate-severe pain (narcotic pain medication). -As needed medications: -Ducolax and /or MiraLax as needed for constipation from narcotic pain medications. -Pepcid AC as needed for stomach upset (usually from aspirin or ibuprofen). Dressing/Wound care: -Keep Aquacell dressing in place until postoperative follow-up office visit. -Okay to shower. Keep wound out of direct water stream. No soaking or submerging until all the scabs fall off (approximately 6 weeks). -Please call the office if dressing becomes wet, soiled, or saturated. Activities: -Maintain anterior hip precautions x6 weeks. -Weight-bearing as tolerated. Use front wheeled walker, and progress to cane when safe. -Continue with home exercises as directed by your physical therapist. -Elevate ?toes above the nose if you have significant swelling in your lower leg. (A wedge pillow is easiest.) -Ice your incision as needed for pain/inflammation/swelling. Protect your skin with a folded pillowcase. Follow-up: -Follow-up with your surgeon or PA in the office in 10-14 days after surgery. -Follow-up with your surgeon 6 weeks postoperatively. Call the office if you have chest pain, shortness of breath, significant swelling that will not resolve with elevating, fever over 101?, significantly worsening pain. [facility]: [phone] Skin/Wound/Dressing Care Report to your healthcare provider any signs of infection, such as:: chills, fever, night sweats, unusual drainage and unusual redness Visit Report/Discharge Packet Instructions: DI for Hip Replacement Stand Alone Forms: Surgery Discharge Discharge Data Primary Care Provider: Katarzyna Kelly
[2021-08-20] MEDS: OXYCODONE IR 5 MG TABLET PO ×2 (07:57→12:15)
[2021-08-20] MEDS: VENLAFAXINE ER 75 MG CAP 150 MG PO (08:22)
[2021-08-20] MEDS: CHLORTHALIDONE 25 MG TABLET PO (08:22)
[2021-08-20] MEDS: ALPRAZolam 0.5 MG TABLET PO (08:22)
[2021-08-20] MEDS: ASPIRIN EC 81 MG TABLET PO (08:23)
[2021-08-20] MEDS: ACETAMINOPHEN 325 MG TABLET 650 MG PO (08:23)
[2021-08-20] MEDS: DOCUSATE 100 MG CAPSULE PO (08:23)
[2021-08-20] MEDS: polyethylene glycoL 3350 17 GM POWD.PACK PO (08:26)
[2021-08-20 08:50] VITALS: BP 161/70; PULSE 90; RESP 18; TEMP 36.8; O2SAT 97
[2021-08-20 09:39] LABS: COVID19 -Nasal RAPID Negative (Negative)
--- NOTE | 2021-08-20 11:57 | PT.IPTN ---
Current Diagnoses Unilateral primary osteoarthritis, right hip (08/18/21) Surgery Performed Operation Date: 08/18/21 07:45 Actual Procedures p Total Hip Arthroplasty/Anterior Approach(Right) - Chuyita Hernandez MD Physical Therapy Treatment Note M2 PT-IP Current Condition Start: 08/18/21 16:15 Freq: NEEDED Status: Active Protocol: Document 08/18/21 14:20 AB (Rec: 08/18/21 16:41 AB [id number]) Physical Therapy Current Condition Current Condition Evaluation Date 08/18/21 Treatment Diagnosis s/p R DERRELL anterior approach; difficulty in walking Onset Date 08/18/21 M3 PT-IP Subjective Start: 08/18/21 16:15 Freq: NEEDED Status: Active Protocol: Document 08/20/21 11:24 KS (Rec: 08/20/21 12:28 KS [id number]) Subjective Physical Therapy Visit Type Type Treatment Note Visit Start Time 11:24 Visit Stop Time 11:57 Total Visit Minutes 33 Number of FSR Visits 3 Physical Therapy Visit Comments Patient Comments agreeable to do PT M4 PT-IP Mobility and Gait Start: 08/18/21 16:15 Freq: NEEDED Status: Active Protocol: Document 08/20/21 11:24 KS (Rec: 08/20/21 12:28 KS [id number]) PT-Bed Mobility Assessment Supine to Sit Supine to Sit Standby Assistance,1 Person Assistance Sit to Supine Sit to Supine Standby Assistance Scooting Scooting to Edge of Bed Standby Assistance Scooting Up and Down in Bed Standby Assistance PT-Transfer Assessment Sit to and From Stand Sit to and from Stand Standby Assistance,Use of Upper Extremities Equipment Transfer Assistive Device Gait Belt,Front Wheeled Walker Orthotic/Prosthetic Devices or Brace: No Transfers Transfer Destination Bed Transfer Technique Pt ambulated w/ FWW Transfer Ability Level of Assist Contact Guard Assistance,1 Person Assistance,Use of Upper Extremities Comments Mobility Comments Pt in bed upon arrival from PT . SBA for sup<>sit and scooting EOB. SBA for sit<> stand w/ FWW. Pt then ambulated ~100 ft to practice stairs w/ FWW and CGA. Pt demonstrated good use of FWW. She then ascended/descended 3 steps w/ R rail ascending and CGA and cues for sequencing. Following stair training she ambulated addtional ~100 ft back to room and got back into bed SBA w/ cues to use LLE to lift and assist RLE into bed. Pt able to reposition herself in bed SBA also. Pt left in bed w/ all needs in reach. Gait Assessment Gait Gait Assistance Required: Contact Guard Assist Distance (Feet) 200 Able to Maintain Weight Bearing Status Yes During Gait Assistive Devices Assistive Device Gait Belt,Front Wheeled Walker Orthotic/Prosthetic Devices or Brace: No Gait Deviations General Gait Pattern Decreased Stride Length, Decreased Feet Clearance Factors Limiting Gait Function Factors Limiting Gait Function Decreased Activity Tolerance, Decreased Strength,Difficulty Following Directions,Limited Range of Motion,Pain,Poor Balance,Poor Safety Awareness Comments Gait Comments Please refer to mobility section for details. Stair Climbing Assessment Evaluation Level of Assist On Stairs Contact Guard Assistance,1 Person Assistance Devices Stair Climbing Assistive Devices Right Railing Technique/Endurance Stair Climbing Direction Ascend and Descend Stair Climbing Technique Step to Step Number of Steps Climbed 3 Stair Climbing Set # Repetitions (reps) 1 Comments Stair Climbing Comments Pt ascended/descended 3 steps R rail w/ step to pattern CGA and cues for sequencing. PT-Balance Assessment Sitting Balance and Reactions Static Sitting Balance Ability Good Dynamic Sitting Balance Ability Good Standing Balance and Reactions Static Standing Balance Ability Good Dynamic Standing Balance Ability Fair Device Used FWW M5 PT-IP Objective Assessments Start: 08/18/21 16:15 Freq: NEEDED Status: Active Protocol: Document 08/18/21 14:20 AB (Rec: 08/18/21 16:41 AB [id number]) Orientation Orientation/Cognition Level of Alertness Alert Orientation Name Language Function Ability No Deficits Noted Safety Awareness Decreased Safety Awareness Memory Description Short Term Impaired Comments with some confusion Gross Range of Motion Lower Extremity ROM Assessment Within Functional Limits Strength Comments Strength Comments LLE: 4-/5 RLE: hip: 3+/5 knee: 4-/5 Sensation Assessment Sensation Gross Sensation WNL Muscle Tone Muscle Tone WNL Yes M6 PT-IP Treatment Start: 08/18/21 16:15 Freq: NEEDED Status: Active Protocol: Document 08/20/21 11:24 KS (Rec: 08/20/21 12:28 KS [id number]) Physical Therapy Treatment Education Education Provided Precautions,Weight Bearing Status,Safety Other Treatments Other Treatment Performed Discussed caregiver training w / pt but pt expresses she has no need. Pt feels confident her friend can assist her into her home up 2 steps if she needs help. Pt is only requiring SBA to CGA and is confident her friend will be able to help her as needed. M7 PT-IP Assessment and Plan Start: 08/18/21 16:15 Freq: NEEDED Status: Active Protocol: Document 08/20/21 11:24 KS (Rec: 08/20/21 12:28 KS [id number]) PT Summary Assessment and Plan Potential Rehabilitation Potential Good Status of Condition at Evaluation Stable Summary Impairments Pain,ROM,Strength,Balance, Coordination,Cognition,Bed Mobility,Transfers,Gait, Activity Tolerance Assessment Summary Pt showed improvements with mobility today, only requiring SBA to CGA throughout treatment. Able to ambulate ~ 200 ft and ascend/descend 3 steps w/ R rail CGA and cues. Able to recall hip precautions . Pt states she does not want caregiver training and is confident her friend can help her at home when she needs it but is mobilizing well. She will benefit from HHPT to imrpvoe strength and functional mobility. Goals Bed Mobility Goal Standby Assistance Transfer Goal Standby Assistance,Front Wheeled Walker Gait Goal Standby Assistance,Front Wheel Walker Gait Distance 200 Other Goals up/down 3 steps 1 rail SBA up/down platform step using FWW SBA Days to Meet Goals 5 Frequency of Treatment Frequency Of Treatment Twice a Day Treatment Plan Physical Therapy Treatment Plan Bed Mobility Training,Transfer Training,Gait Training, Therapeutic Exercise,Balance Retraining,Post Op Education, Discharge Planning,Hot or Cold Pack,Neuromuscular Re-ed, Coordination Retraining,Manual Therapy Precautions Anterior Hip Precautions No Hip Extension,No Hip External Rotation Weight Bearing Status Weight Bearing Status Weight Bear as Tolerated Allowed Weight Bearing Amount (enter % RLE WBAT or #) (%) Recommendations To Nursing Amount of Assist Needed 1 Person Assist Discharge Recommendations PT Discharge Recommendations Home with Assistance,Home Health Transportation Needs at Discharge Private Vehicle
[2021-08-20 12:05] VITALS: BP 141/67; PULSE 88; RESP 16; TEMP 37.2; O2SAT 97
--- NOTE | 2021-08-20 14:10 | PC.NURSE ---
Day shift: Paperwork signed and all questions answered. Jona remains CDI. scripts sent to Pt's pharmacy electronic. Pt has all personal belongings. Steady on feet with FWW. Pt friend Tra in room for d/c teachings. Taken to car that Tra is driving in by UZAIR Mock at approx [phone].
== END 2021-08-20 14:21 | disposition home health service (06) | DRG 470 ==
LOC: OR 06:05 → AC 08-19 10:30
PROVIDERS: Physician Assistant; Admitting Provider Orthopaedic Surgery; PCP Nurse Practitioner Family; Referring Provider Orthopaedic Surgery; Visit Provider Orthopaedic Surgery
PROC: 0SR906A Replacement of Right Hip Joint with Oxidized Zirconium on Polyethylene Synthetic Substitute, Uncemented, Open Approach (ICD-10-PCS; CPT 27130; principal; 2021-08-18 07:45)
DX: M16.11 Unilateral primary osteoarthritis, right hip (principal); F32.A Depression, unspecified; F41.9 Anxiety disorder, unspecified; I10 Essential (primary) hypertension; Z87.891 Personal history of nicotine dependence; Z20.822 Contact with and (suspected) exposure to COVID-19
CPT/HCPCS: 36415; 72170; 73502; 76000; 85014; 85018; 87635; 97116; 97161; 97530; C1776; C9803; C9290; J0171; J0690; J1170; J1200; J2250; J2405; J2704; J3010; J3410